=== PATIENT | female | born 1995 | race Caucasian/White ===

== ENCOUNTER 2017-11-05 20:06 | Emergency (ER) | payer MEDICAID, SELFPAY ==
[2017-11-05 20:08] VITALS: BP 140/80; PULSE 102; RESP 14; RESP 15; TEMP 36.4; O2SAT 99; BMI 28.5
--- NOTE | 2017-11-05 21:42 | ED.VISSUMM ---
- ER Visit Summary Date of Service: 11/05/17 Chief Complaint: Unable to retrieve tampon History of Present Illness: The patient is a 22 F who is on her menses put a tampon in her vagina yesterday and she is unable to retrieve it. She has no abdominal pain, no fever or chills, no rash Physical Examination: Soft and nontender abdomen. Normal external genitalia. She has no petechiae or rash. She appears well and nontoxic. Emergency Department Course and Treatment: Pelvic exam was done and the tampon was retrieved. Patient will be discharged in stable condition Impression: Tampon retrieval This note was generated with [employer] dictation software. It may contain incorrect words, spelling, and punctuation that were not noted in review of the chart prior to signing ED Disposition - Plan for ED Patient: Disposition: Home or Assisted Living Chief Complaint: Other, Pain/Inj Instructions: ED Foreign Body Vaginal Referrals: Sophia Nguyen [Primary Care Provider] - 3-5 Days
[2017-11-05 21:54] VITALS: RESP 16
--- NOTE | 2017-11-05 21:54 | ED.RN ---
REVIEWED D/C INSTRUCTIONS, FOLLOW UP CARE, AND S/S THAT WOULD WARRANT A RETURN TO THE ED WITH PT. PT VERBALIZED AN UNDERSTANDING AND DENIES FURTHER QUESTIONS FOR THIS RN. PT SKIN P/W/D, RESP EVEN AND UNLABORED, PT A&O X 3, NO DISTRESS NOTED. PT AMBULATED OUT OF ED, GAIT STEADY.
== END 2017-11-05 21:58 | disposition home or self-care (01) ==
PROVIDERS: Emergency Provider Emergency Medicine
DX: T19.2XXA Foreign body in vulva and vagina, initial encounter (principal); X58.XXXA Exposure to other specified factors, initial encounter; Y93.9 Activity, unspecified; Y92.9 Unspecified place or not applicable; F41.9 Anxiety disorder, unspecified; Z79.899 Other long term (current) drug therapy; Z72.0 Tobacco use
CPT/HCPCS: 99283

== ENCOUNTER 2018-11-18 01:41 | Emergency (ER) | payer MEDICAID, SELFPAY ==
[2018-11-18 01:41] VITALS: BP 147/97; PULSE 143; RESP 20; TEMP 37.5; O2SAT 99; BMI 24.5
--- NOTE | 2018-11-18 02:19 | ED.RN ---
PT APPROACHED THE NURSES DESK, AMBULATING INDEPENDENTLY, AND ASK WHEN CAN SHE GET THE FUCK OUT OF HERE. THIS RN STATED WE WERE CONCERNED THAT HER HEART RATE WAS ELEVATED BUT WE WERE NOT RESTRAINING HER FROM LEAVING. PT CURRENTLY ALERT AND ORIENTED X'S4 AND AMBULATING INDEPENDENTLY. TO WHICH THE PATIENT STATED GOOD. I FEEL FINE. I'M LEAVING. THANK YOU HONEY. AND LEFT THE DEPARTMENT. DR. BABB NOTIFIED OF PATIENT LEAVING. HE VERBALIZES UNDERSTANDING.
== END 2018-11-18 02:24 ==
PROVIDERS: Emergency Provider Emergency Medicine
DX: F19.10 Other psychoactive substance abuse, uncomplicated (principal)
CPT/HCPCS: 99283

== ENCOUNTER 2018-11-20 14:08 | Emergency (ER) | payer MEDICAID, SELFPAY ==
[2018-11-20 14:11] VITALS: BP 114/71; PULSE 115; RESP 17; TEMP 36.8; O2SAT 99; BMI 23.6
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
--- NOTE | 2018-11-20 16:01 | EKG12_ITS ---
Test Reason : Blood Pressure : / mmHG Vent. Rate : 099 BPM Atrial Rate : 099 BPM P-R Int : 138 ms QRS Dur : 084 ms QT Int : 356 ms P-R-T Axes : 039 068 058 degrees QTc Int : 456 ms Normal sinus rhythm Normal ECG Confirmed by KATJA MESSER, LAKE ([id number]), technical editor JASPAL IVAN ([id number]) on 11/22/2018 10:51:23 AM Referred By: Confirmed By:LAKE HIGHTOWER MD
[2018-11-20] MEDS: Naloxone 2 MG/2 ML Syringe IV (16:42)
[2018-11-20] MEDS: Ziprasidone IM 20 MG/ML VIAL 10 MG IM (16:57)
[2018-11-20 17:32] LABS: Internal QC Validated? YES +Cl - CLEAR BKGD; Pregnancy, Serum, hCG Quali. NEGATIVE Negative
[2018-11-20 17:36] LABS: Alcohol, Blood (Medical)-Serum < 3.0 mg/dL
[2018-11-20 18:17] VITALS: BP 135/79; PULSE 90; RESP 14; O2SAT 98
[2018-11-20 18:27] LABS: Absolute Lymphocyte Count 1.68 X10^3/uL (0.83-4.51); Absolute Neutrophil Count 5.6 X10^3/uL (2.0-7.7); Basophil# 0.03 X10^3/uL; Basophil% 0.4 % (0-1); Eosinophil# 0.08 X10^3/uL; Hematocrit 35.8 % (37-47); Hemoglobin 11.5 g/dL (12.0-15.0); Lymphocyte # 1.68 X10^3/ul (4.0); Lymphocyte % 21.1 % (19-41); Mean Corp Hgb Conc 32.1 g/dL (32-36); Mean Corpuscular Hgb 27.4 pg (27.0-32.0); Mean Corpuscular Volume 85.2 fL (81-99); Mean Platelet Vol. 10.4 fl (6.2-12.0); Monocyte# 0.58 X10^3/uL; Monocyte% 7.3 % (0-10); NRBC Flagged by Analyzer 0 % (0-5); Neutrophil # 5.59 X10^3/uL (2.7-7.7); Neutrophil % 69.9 % (47-70); Platelet Count 267 K/mm3 (150-450); RBC Distribution Width CV 13.6 % (11.6-14.6); RBC Distribution Width SD 42.3 fl (35.1-43.9)
[2018-11-20 18:31] VITALS: O2SAT 99
[2018-11-20 18:43] LABS: Bacteria 0 SEEN /hpf (None Seen); Mucous, Urine 0 SEEN /hpf (<or=2+); Red Blood Cells-Urine 0 SEEN /hpf (0-5); White Blood Cells 0 SEEN /hpf (0-5)
[2018-11-20 18:44] LABS: Anion Gap 6 (5-15); BUN 16 mg/dL (7-18); BUN/Creat Ratio 21.3 RATIO (10-20); Chloride 108 mmol/L (98-107); Creatinine, Serum 0.75 mg/dL (0.55-1.02); EST Glomerular Filtration Rate 99 mL/min (>60); Est Glom Filt Rate - Afr Amer 120 mL/min (>60); Estimated Creatinine Clearance 107.34 ml/min; Glucose 105 mg/dL (74-106); Potassium 3.5 mmol/L (3.5-5.1); Sodium Level 142 mmol/L (136-145)
[2018-11-20 18:47] LABS: Color, Urine Yellow (Yellow); Glucose, Dipstick Normal (Normal); Ketone-Dipstick Negative (Negative); Leukocyte Esterase-Dipstick Negative /ul (Negative); Nitrite-Dipstick Negative (Negative); Occult Blood-Urine Negative /ul (Negative); Protein-Dipstick Negative (Negative); Specific Gravity, Urine 1.015 (1.002-1.030); Urine Bilirubin Dipstick Negative (Negative); Urine Clarity Clear (Clear); Urine Urobilinogen Normal (Normal); Urine pH 6.5 (5.0 - 8.0)
[2018-11-20 19:06] LABS: Squamous Epithelial Cells - UA 0-5 SEEN /hpf (5-10)
[2018-11-20 19:20] LABS: Amphetamine Urine VISTA POSITIVE (<1000 ng/mL); Barbiturate Urine VISTA NEGATIVE (< 200 ng/mL); Benzodiazepine Urine VISTA POSITIVE (< 200 ng/mL); Cocaine Urine VISTA NEGATIVE (< 300 ng/mL); Ecstacy Urine VISTA POSITIVE (< 500 ng/mL); Methadone Urine VISTA NEGATIVE (< 300 ng/mL); PCP Urine VISTA NEGATIVE (< 25 ng/mL); THC Urine VISTA NEGATIVE (< 50 ng/mL); Vista UDS pH Range 6
[2018-11-20 20:30] VITALS: RESP 14
--- NOTE | 2018-11-20 20:48 | CM.ED ---
Social Work Collaborating with Dr. Carson. Patient tox results are back and patient is positive for Amphetamines, Meth, and Benzos. Dr. Carson wanting to continue to monitor patient as patient is not waking up to speak with Dr. Carson at this time. This nephrology social worker also attempting to speak further with patient, patient sleeping in bed and unable to be woken up from sleep. Patient would stir when mentioning name but no verbal response. Dia Baird MSW, ANATOLIY
--- NOTE | 2018-11-20 22:20 | CM.ED ---
Social Work Attempted to speak with patient again in room. Patient woke up and spoke with this social insurance adviser. Patient now admitting to dabble in Meth. Patient denies substance abuse treatment or support. Patient stating plan to get set up with [facility] as program that patient has gone through in the past. This social insurance adviser again offering to assist with facilitation or information, patient declining support stating It will be fine. update on above information. Dia Baird MSW, ANATOLIY
--- NOTE | 2018-11-20 23:25 | ED.VISSUMM ---
- ER Visit Summary Date of Service: 11/20/18 Chief Complaint: Anxiety History of Present Illness: The patient is a 23 F who presents with anxiety that became worse today. Patient is a poor historian. Patient reported to the triage nurse that she was out of her Xanax and was having increasing anxiety. Patient denied any suicidal homicidal ideations. Family reported that the patient has a history of substance abuse problems. Family is requesting the patient be placed in a substance abuse rehab facility. Patient states that she has a rehab facility that she wishes to go to. Patient brought her medications in with her. Most of the medications are correct in the prescription bottles. However, patient has 1 dose of Vistaril in her venlafaxine bottle. Patient also has a mixture of Zanaflex and gabapentin in a bottle with a label of Xanax. All of her other pills are in the correct bottles. Physical Examination: Patient is sleeping on exam. Patient awakens to tunnel rub. Patient will not answer any questions. Vital signs are stable except for mild tachycardia of 115. Patient is afebrile. Patient is in no acute distress. Oral mucosa is pink and moist. Neck is supple. Trachea is midline. There is no JVD noted. Heart was regular and tachycardic. Lungs are clear and equal bilaterally. Abdomen is soft and nontender. Cranial nerves II through XII are intact. There are no apparent focal motor or sensory deficits noted. Test Results: EKG showed normal sinus rhythm with a rate of 99. There are no acute ST or T wave changes. CBC, basic metabolic profile, and urinalysis were obtained and were all within normal limits. Serum hCG was negative. Serum alcohol level was negative. Urine tox screen was positive for amphetamines, MDMA, and benzodiazepines. Emergency Department Course and Treatment: Patient became agitated and combative with nursing staff while they were attempting to draw blood and start an IV. Patient then fell back to sleep when she was left alone. Patient was slightly more alert on reevaluation. Patient was able to answer questions on reevaluation. Patient stated she wanted to go to her rehab facility of her choice. Patient will be discharged to go to that facility. Patient understood and was agreeable with the plan. All questions were answered. Disposition: Discharged Impression: 1. Substance abuse This note was generated with [employer] software. It may contain incorrect words, spelling, and punctuation that were not noted in review of the chart prior to signing ED Disposition - Plan for ED Patient: Disposition: Home or Assisted Living Diagnosis: Substance abuse Instructions: Drug Abuse Referrals: Sophia Nguyen [Primary Care Provider] - 3-5 Days
[2018-11-20 23:30] VITALS: RESP 16
--- NOTE | 2018-11-21 00:20 | ED.RN ---
PATIENT DISCHARGED. SPOKE TO FAMILY FOR RIDE FOR PATIENT. FAMILY REFUSES TO COME GET HER AND REFUSES TO LET HER HOME.
[2018-11-21 00:33] VITALS: BP 118/70; PULSE 89; RESP 16; O2SAT 100
[2018-11-21 01:24] VITALS: RESP 16
== END 2018-11-21 03:06 | disposition home or self-care (01) ==
PROVIDERS: Emergency Provider Emergency Medicine
DX: F19.10 Other psychoactive substance abuse, uncomplicated (principal); F41.9 Anxiety disorder, unspecified; Z72.0 Tobacco use
CPT/HCPCS: 80048; 80307; 80320; 81001; 84703; 85025; 93005; 96372; 96374; 99285; P9612; A4216; G0480; J3486

== ENCOUNTER 2019-10-14 16:25 | Outpatient (CLI) | payer MEDICAID, SELFPAY ==
[2019-10-14 16:38] VITALS: TEMP 36.8; O2SAT 98
[2019-10-14 16:42] VITALS: BP 121/65; PULSE 85
[2019-10-14 16:44] VITALS: BMI 27.9
--- NOTE | 2019-10-14 18:15 | OB.TRI.HP_ITS ---
- Problem List (1) 32 weeks gestation of Status: Acute (2) Fall Status: Acute History of Present Illness Date of Service: 10/14/19 Was patient seen by the physician?: Yes Reason For Visit: CRAMPING Date of Service: 10/14/19 Final [place]ER[place]: 12/09/19 Gestational age: 32 Weeks and 0 Days History of Present Illness: Patient is a at 32 weeks gestation that presents to triage for mild cramping. Patient fell last evening while at [employer]. She stated she stopped fall by grabbing a hold of shelves but bumped side of her stomach. Denies any loss of fluid, vaginal bleeding and stated positive movement. She started feeling crampy this afternoon, became concerned and came in for monitoring. Allergies No Known Allergies Allergy (Verified 10/14/19 16:38) Review of Systems Constitutional: Denies: Anorexia Eyes: Denies: Blurred vision HEENT: Denies: Eye Pain, Head Aches Cardiovascular: Denies: Chest Pain, Light Headedness Respiratory: Denies: Cough, Shortness of Breath Gastrointestinal: Denies: Abdominal Pain Neurological: Denies: Balance problems Physical Exam Vitals: Vital Signs Temp Pulse BP Pulse Ox 98.3 F 85 121/65 H 98 10/14/19 16:38 10/14/19 16:42 10/14/19 16:42 10/14/19 16:38 General: Alert, Oriented x3, No apparent distress HEENT: Negative for: Atraumatic Cardiovascular: Regular rate, Regular Rhythm Lungs: Clear to auscultation, Normal air movement Abdomen: Soft, Non Tender, Gravid Neurological: Cranial nerves II-XII grossly intact NST - FHR Rate Baby A Baseline: 130 Variability:: Moderate Accelerations:: 15 x 15 Decelerations:: None NST Reactive:: Appropriate for gestational age FHR Category:: Category I Uterine Activity:: Irritability noted when bladder is full. Contractions not palpable. Impression/Plan A/P at 32 weeks gestation s/p fall yesterday evening NST - reactive, Category 1 tracing Patient given instructions to call and report any decreased movement, contractions that become regular or painful, pain in abdomen or vaginal ble eding. Patient to keep current office visit this week Discharge home. Patient agrees with plan of care
== END 2019-10-14 18:10 | disposition home or self-care (01) ==
LOC: WPOUT 16:33 → OBT 16:34
PROVIDERS: Visit Provider Advanced Practice Midwife
DX: O26.893 Other specified pregnancy related conditions, third trimester (principal); R25.2 Cramp and spasm; Z3A.32 32 weeks gestation of pregnancy; W18.30XA Fall on same level, unspecified, initial encounter; Y93.9 Activity, unspecified; Y92.512 Supermarket, store or market as the place of occurrence of the external cause; Y99.9 Unspecified external cause status
CPT/HCPCS: 59025; 59050; 99218; G0378

== ENCOUNTER 2019-12-06 23:18 | Outpatient (CLI) | payer MEDICAID, SELFPAY ==
[2019-12-06 23:46] VITALS: TEMP 36.6
[2019-12-06 23:50] VITALS: BP 115/78; PULSE 67
[2019-12-06 23:57] VITALS: BMI 27.3
[2019-12-07 01:35] VITALS: BP 113/72; PULSE 68
--- NOTE | 2019-12-07 07:28 | OB.TRI.NOTE ---
- Problem List (1) 39 weeks gestation of Status: Acute (2) Irregular contractions Status: Acute History of Present Illness Date of Service: 12/06/19 Was patient seen by the physician?: No Reason For Visit: R/O Final FEDERICA: 12/09/19 Gestational age: 39 Weeks and 5 Days History of Present Illness: Patient is a that presents to triage with contractions. Denies any loss of fluid or vaginal bleeding. Positive movement. Allergies No Known Allergies Allergy (Verified 10/14/19 16:38) Review of Systems Constitutional: Denies: Chills, Fever HEENT: Denies: Head Aches Cardiovascular: Denies: Chest Pain Respiratory: Denies: Cough, Shortness of Breath Genitourinary: Denies: Dysuria Psychiatric: Reports: Anxiety Physical Exam Vitals: Vital Signs Temp Pulse BP 97.9 F 68 113/72 12/06/19 23:46 12/07/19 01:35 12/07/19 01:35 General: Alert Cardiovascular: Regular rate Lungs: Normal air movement Abdomen: Gravid Neurological: Cranial nerves II-XII grossly intact Cervix Dilation (cm): 2.5 Station: -2 Effacement (%): 70 NST - FHR Rate Baby A Baseline: 120 Variability:: Moderate Accelerations:: 15 x 15 Decelerations:: None NST Reactive:: Yes FHR Category:: Category I Uterine Activity:: Contractions 2-4 minutes via TOCO Impression/Plan at 39.5 weeks for rule out labor Category 1 tracing CE- unchanged at 2.5/70/-2 Tylenol 1000 mg x 1 now for pain Discharge home with follow up in office
== END 2019-12-07 02:28 | disposition home or self-care (01) ==
LOC: WPOUT 23:24 → WP 23:25
PROVIDERS: Visit Provider Advanced Practice Midwife
DX: O62.9 Abnormality of forces of labor, unspecified (principal); Z3A.39 39 weeks gestation of pregnancy
CPT/HCPCS: 59025; 59050; 99218; G0378

== ENCOUNTER 2019-12-07 15:20 | Inpatient (IN) | payer MEDICAID, SELFPAY ==
[2019-12-06 23:57] VITALS: BMI 27.3
[2019-12-07] VITALS (28 sets, daily range): BP systolic 89–129; BP diastolic 50–77; PULSE 80–125; TEMP 37–37.8; O2SAT 92–100; BMI 26.8
[2019-12-07 14:59] LABS: Color, Urine Yellow (Yellow); Glucose, Dipstick Normal (Normal); Leukocyte Esterase-Dipstick 500 /ul (Negative); Nitrite-Dipstick Negative (Negative); Occult Blood-Urine 50 /ul (Negative); Protein-Dipstick Negative (Negative); Specific Gravity, Urine 1.015 (1.002-1.030); Urine Bilirubin Dipstick Negative (Negative); Urine Clarity Clear (Clear); Urine Urobilinogen Normal (Normal)
[2019-12-07 15:08] LABS: Ketone-Dipstick 150 mg/dl (Negative)
[2019-12-07 15:13] LABS: Amphetamine Urine VISTA NEGATIVE (<1000 ng/mL); Barbiturate Urine VISTA NEGATIVE (< 200 ng/mL); Benzodiazepine Urine VISTA NEGATIVE (< 200 ng/mL); Cocaine Urine VISTA NEGATIVE (< 300 ng/mL); Ecstacy Urine VISTA NEGATIVE (< 500 ng/mL); Methadone Urine VISTA NEGATIVE (< 300 ng/mL); PCP Urine VISTA NEGATIVE (< 25 ng/mL); THC Urine VISTA POSITIVE (< 50 ng/mL); Vista UDS pH Range 6
--- NOTE | 2019-12-07 15:34 | HP.PCM_ITS ---
- Problem List (1) Term Status: Acute (2) Marijuana use Status: Acute (3) Hepatitis C Status: Acute (4) History of depression Status: Acute (5) History of anxiety Status: Acute (6) History of depression Status: Acute (7) Tobacco use complicating Status: Acute (8) History of drug abuse Status: Acute History Date of Admission: 01/01/16 Final FEDERICA: 12/09/19 Gestational age: 39 Weeks and 5 Days History of this : This is a 24 year-old, G [3], P [1011], at 39weeks 5days gestational age. In and out of triage for prodromal labor. Progressed from 2cm in office yesterday to 4cm at this time. Tearful and crying in pain. IOL for maternal discomfort and prodromal labor. Allergies No Known Allergies Allergy (Verified 10/14/19 16:38) Home Medications: Home Medications Famotidine 20 mg PO BID 11/20/18 Vitamin Tablet 1 tab PO DAILY 10/14/19 Smoking Status: Current every day smoker Alcohol: None Substance Use Type: Marijuana Number of Fetus(es): 1 NST - FHR Rate Baby A Baseline: 150 Variability:: Moderate Accelerations:: 15 x 15 Decelerations:: None FHR Category:: Category I Uterine Activity:: every 5-7 minutes, moderate History Past Pregnancies: Past Pregnancies Delivery Date Name GA/ Weeks Outcome Route Wt Infant Sex Labor Length Anesthesia Delivery Location Provider FOB Labs: GBS negative GC/CT negative RPR negative Rubella equivocal HIV negative A positive HCV RNA 7,279,574 IU/ml 11/23/19 HBsAG initially reactive, recheck negative Expected Infant Delivery Method: Spontaneous Vaginal Review of Systems Constitutional: Denies: Chills, Fever, Weight Change HEENT: Denies: Head Aches, Sinus Congestion, Sinus Drainage Cardiovascular: Denies: Chest Pain, Palpitations Respiratory: Denies: Cough, Shortness of breath at rest, Sputum production Gastrointestinal: Denies: Abdominal Pain, Nausea, Vomiting Genitourinary: Denies: Dysuria Musculoskeletal: Denies: Joint Pain, Joint Tenderness Skin: Denies: Rash, Wounds Neurological: Denies: Numbness, Tingling, Focal weakness Psychiatric: Denies: Anxiety, Depression, Homicidal Ideations, Suicidal Ideations Hematologic/ Lymphatic: Denies: Easy Bruising, Easy Bleeding Physical Exam Vitals: Vital Signs Temp Pulse BP Pulse Ox 98.6 F 90 119/67 99 12/07/19 12:08 12/07/19 15:07 12/07/19 15:07 12/07/19 12:08 General: Alert, Oriented x3, Cooperative HEENT: Atraumatic, Normocephalic Cardiovascular: Regular rate, Regular Rhythm, No murmurs Lungs: Clear to auscultation, Normal air movement, No rhonchi, No wheeze Abdomen: Bowel Sounds Present, Gravid Extremities:: No edema Neurological: Deep Tendon Reflexes 2+/4 and Symmetrical REAL ESTATE DEVELOPMENT MANAGER: Normal external genitalia Estimated gestational size: Appropriate for gestational size Presentation: Cephalic Cervix Dilation (cm): 4 - cephalic Station: -1 Effacement (%): 80 Assessment/Plan All Active Problems 32 weeks gestation of (Acute) Fall (Acute) 39 weeks gestation of (Acute) Irregular contractions (Acute) Term (Acute) Marijuana use (Acute) Hepatitis C (Acute) History of depression (Acute) History of anxiety (Acute) History of depression (Acute) Tobacco use complicating (Acute) History of drug abuse (Acute) Respiratory failure requiring intubation (Acute) Seizure (Acute) Substance abuse (Acute) Anxiety (Acute) This is a 24 year-old, G [3], P [1011], at 39 weeks 5 days gestational age. A:Early Labor Category 1 FHT P: 1) Admit to labor and delivery 2) Routine labs, IV 3) Planning epidural 4) Continuous EFM 5) GBS negative 6) Denies COVID symptoms 7) notified of admission and plan
[2019-12-07 16:21] LABS: Absolute Lymphocyte Count 1.16 X10^3/uL (0.83-4.51); Absolute Neutrophil Count 21.3 X10^3/uL (2.0-7.7); Basophil# 0.03 X10^3/uL; Basophil% 0.1 % (0-1); Eosinophil# 0.03 X10^3/uL; Eosinophils% 0.1 % (0-5); Hematocrit 36.7 % (37-47); Hemoglobin 11.9 g/dL (12.0-15.0); Lymphocyte # 1.16 X10^3/ul (4.0); Mean Corp Hgb Conc 32.4 g/dL (32-36); Mean Corpuscular Hgb 30.1 pg (27.0-32.0); Mean Corpuscular Volume 92.7 fL (81-99); Mean Platelet Vol. 11.3 fl (6.2-12.0); Monocyte# 0.48 X10^3/uL; Monocyte% 2.1 % (0-10); NRBC Flagged by Analyzer 0 % (0-5); Neutrophil % 91.8 % (47-70); POSITIVE DIFFERENTIAL YES; Platelet Count 255 K/mm3 (150-450); RBC Distribution Width CV 13.1 % (11.6-14.6); RBC Distribution Width SD 44.6 fl (35.1-43.9); Red Blood Count 3.96 M/mm3 (4.2-5.4); White Blood Count 23.2 K/mm3 (4.4-11.0)
[2019-12-07 16:25] LABS: Differential Indicated SCAN CRITERIA MET
[2019-12-07] MEDS: Lactated Ringers 1,000 ML 50 ML IV (16:31)
[2019-12-07] MEDS: Lactated Ringers 500 ML 999 ML IV (16:32)
[2019-12-07] MEDS: proCHLORPERazine 10 MG/2 ML Vial IV (17:18)
[2019-12-07 17:22] LABS: Platelet Estimate ADEQUATE (ADEQ); Red Cell Morphology NORM C+C NORMAL (NORM C&C)
[2019-12-07] MEDS: Oxytocin 30 units/NS 500 ml 30 UNITS/500 ML IV.SOLN 334 UNITS IV (20:05)
--- NOTE | 2019-12-07 20:20 | PCM.OPRPT ---
Problem List (1) Term Status: Acute (2) Marijuana use Status: Acute (3) Hepatitis C Status: Acute (4) History of depression Status: Acute (5) History of anxiety Status: Acute (6) History of depression Status: Acute (7) Tobacco use complicating Status: Acute (8) History of drug abuse Status: Acute Vaginal Delivery Maternal Presentation: - - Early labor, inductinon for prodromal labor. Method of Induction: Amniotomy Amniotic Membrane Rupture Type: Artificial Amniotic Fluid Description: Lightly stained meconium Final FEDER[place]: 12/09/19 Gestational age: 39 Weeks and 5 Days Date of Procedure: 12/07/19 Pre-Operative Diagnosis: Early Labor Post-Operative Diagnosis: Surgery/ Procedure Performed: Spontaneous Vaginal Delivery Type of Anesthesia: Epidural Description of Procedure: Progressed to anterior lip, comfortable with epidural. Variable decelerations. Good pushing effort. of viable female infant over intact perineum at 2003. APGARS 8,9. delivered with boy immediately following. Placed on maternal abdomen, strong cry. Mouth and nares suctioned for secretions. Pitocin started for active 3rd stage management. Cord clamped and cut after pulsations ceased by FOB. Placenta delivered via antonette, intact, 3 vessel cord. Perineum inspected and intact. Vaginal sweep completed and sponge and instrument count correct by me. Planning to attempt , nipples intact. Mom and baby stable. Family bonding well. notified of delivery. Presentation: Vertex Placental Delivery Description: Spontaneous Placenta Disposition: [facility] Cord Vessel Description: 3 Vessels Cord Entanglement: None Estimated Blood Loss: 300 ml Infant A gender: Female Episiotomy Description: None Laceration: None Medications given after delivery: IV Pitocin Complications: None
[2019-12-07] MEDS: Famotidine 20 MG Tablet PO (22:31)
[2019-12-07] MEDS: 0.9% Saline Lock 10 ML Syringe IV (22:31)
[2019-12-08] MEDS: Ibuprofen 600 MG Tablet PO ×3 (00:15→19:04)
[2019-12-08 00:26] VITALS: BP 105/63; PULSE 80; RESP 18; TEMP 36.9
[2019-12-08 04:00] VITALS: BP 121/66; PULSE 75; RESP 18; TEMP 36.3
[2019-12-08 04:15] LABS: Hematocrit 33.3 % (37-47); Hemoglobin 10.7 g/dL (12.0-15.0); Mean Corp Hgb Conc 32.1 g/dL (32-36); Mean Corpuscular Hgb 29.8 pg (27.0-32.0); Mean Corpuscular Volume 92.8 fL (81-99); Mean Platelet Vol. 11.3 fl (6.2-12.0); Platelet Count 272 K/mm3 (150-450); RBC Distribution Width CV 13.3 % (11.6-14.6); RBC Distribution Width SD 45.2 fl (35.1-43.9); Red Blood Count 3.59 M/mm3 (4.2-5.4); White Blood Count 23.8 K/mm3 (4.4-11.0)
[2019-12-08 08:55] VITALS: BP 112/74; PULSE 75; RESP 14; TEMP 36.3
[2019-12-08] MEDS: Famotidine 20 MG Tablet PO ×2 (09:11→22:52)
[2019-12-08 11:46] VITALS: BP 116/70; PULSE 75; RESP 15; TEMP 36.4
[2019-12-08] MEDS: Prenatal Vits Tablet 1 TABLET PO (11:51)
--- NOTE | 2019-12-08 13:17 | PCM.PN.OB ---
Patient Problems: Active and Suspected Problems Term (Acute) Marijuana use (Acute) Hepatitis C (Acute) History of depression (Acute) History of anxiety (Acute) History of depression (Acute) Tobacco use complicating (Acute) History of drug abuse (Acute) Subjective: Doing well per patient and nursing staff. Ambulating and taking PO without difficulty. Voiding and passing flatus. Pain controlled. Bottle feeding. Lochia normal. Planning D/C home tomorrow. - Physical Exam Vitals/I&O's: Vital Signs Temp Pulse Resp BP Pulse Ox 97.6 F L 75 15 116/70 96 12/08/19 11:46 12/08/19 11:46 12/08/19 11:46 12/08/19 11:46 12/07/19 20:27 Oxygen Delivery Method Room Air Weight: 161 lb 2 oz Body Mass Index (BMI) 26.8 Finger Stick Blood Glucose 145 Intake and Output for Last 24 Hours 12/06/19 12/07/19 12/08/19 23:59 23:59 23:59 Intake Total 1497.50 / 1497.50 Output Total 550 / 550 350 / 350 Balance 947.50 / 947.50 -350 / -350 General: Alert, Oriented x3, Cooperative HEENT: Atraumatic, Normocephalic Neck: Trachea Midline Lungs: Clear to auscultation, Normal air movement, No rhonchi, No wheeze Cardiovascular: Regular rate, Regular Rhythm, No murmurs Abdomen: Bowel Sounds Present, Soft - fundus firm 2 below U Extremities: No edema Psych/Mental Status: Normal Affect, Appropriate Laboratory Results 12/07/19 14:30: Urine Opiates Screen NEGATIVE, Urine Methadone Screen NEGATIVE, Ur Barbiturates Screen NEGATIVE, Ur Phencyclidine Scrn NEGATIVE, Ur Amphetamines Screen NEGATIVE, U Methamphetamin-MDMA NEGATIVE, U Benzodiazepines Scrn NEGATIVE, Urine Cocaine Screen NEGATIVE, U Cannabinoids Screen POSITIVE H, Ur Drug Screen Comment 12/07/19 14:30: Urine Color Yellow, Urine Clarity Clear, Urine pH 6.0, Ur Specific [place] 1.015, Urine Protein Negative, Urine Glucose (UA) Normal, Urine Ketones 150 H, Urine Occult Blood 50 H, Urine Nitrite Negative, Urine Bilirubin Negative, Urine Urobilinogen Normal, Ur Leukocyte Esterase 500 H 12/07/19 16:05: WBC 23.2 H, RBC 3.96 L, Hgb 11.9 L, Hct 36.7 L, MCV 92.7, MCH 30.1, MCHC 32.4, RDW Std Deviation 44.6 H, RDW Coeff of Silvana 13.1, Plt Count 255, MPV 11.3, Immature Gran % (Auto) 0.900, Neut % (Auto) 91.8 H, Lymph % (Auto) 5.0 L, [place] % (Auto) 2.1, Eos % (Auto) 0.1, Baso % (Auto) 0.1, Absolute Neuts (auto) 21.3 H, Absolute Lymphs (auto) 1.16, Nucleated RBC % 0, Differential Comment , Platelet Estimate ADEQUATE, RBC Morphology NORM C+C 12/07/19 16:05: Blood Type A POSITIVE, Antibody Screen NEGATIVE 12/08/19 04:00: WBC 23.8 H, RBC 3.59 L, Hgb 10.7 L, Hct 33.3 L, MCV 92.8, MCH 29.8, MCHC 32.1, RDW Std Deviation 45.2 H, RDW Coeff of Silvana 13.3, Plt Count 272, MPV 11.3 Current Medications Acetaminophen (Tylenol) 1,000 mg PO Q8H PRN PRN PRN Reason: Pain Score 1-3 Al Hydroxide/Mg Hydroxide (Mylanta Ii) 15 - 30 ml PO Q4H PRN PRN PRN Reason: INDIGESTION Bisacodyl (Dulcolax) 10 mg RECTAL UD PRN PRN Reason: If no BM Citric Acid/Sodium Citrate (Bicitra) 30 ml PO X1 PRN PRN Reason: Section Dibucaine (Dibucaine) 1 applic TOPICAL TID PRN PRN; Protocol PRN Reason: Discomfort Famotidine (Pepcid) 20 mg PO BID ZAIRA Last Admin: 12/08/19 09:11 Dose: 20 mg Documented by: Hydrocortisone (Hytone) 1 applic TOPICAL TID PRN PRN; Protocol PRN Reason: Discomfort Lactated Ringer's () 500 mls @ 999 mls/hr IV .Q31M PRN PRN Reason: Epidural Last Infusion: 12/07/19 17:03 Dose: Infused Documented by: Lactated Ringer's () 500 mls @ 999 mls/hr IV .Q31M PRN PRN Reason: Corrective Measures Lactated Ringer's () 1,000 mls @ 50 mls/hr IV .Q20H ZAIRA Last Infusion: 12/07/19 20:04 Dose: Infused Documented by: Ibuprofen (Motrin) 600 mg PO Q6H PRN PRN PRN Reason: Pain Score 1-3 Last Admin: 12/08/19 09:11 Dose: 600 mg Documented by: Methylergonovine Maleate (Methergine) 0.2 mg IM X1 PRN PRN Reason: Excess bleeding/uterine atony Ondansetron HCl (Zofran) 4 mg IV Q4H PRN PRN PRN Reason: NAUSEA Ondansetron HCl (Zofran) 4 mg IV Q4H PRN PRN PRN Reason: Nausea Multivit/Folic Acid/Iron (Prenatabs Fa) 1 tablet PO DAILY@1200 ZAIRA Last Admin: 12/08/19 11:51 Dose: 1 tablet Documented by: Prochlorperazine Edisylate (Compazine Iv) 10 mg IV Q6H PRN PRN PRN Reason: NAUSEA Last Admin: 12/07/19 17:18 Dose: 10 mg Documented by: Senna/Docusate Sodium (Senokot-S, Mer-Colace) 1 - 2 tablet PO DAILY PRN PRN PRN Reason: Constipation Simethicone (Mylicon) 80 mg PO PCHS PRN PRN Reason: Indigestion/Stomach pain Sodium Chloride () 5 - 15 ml IV UD PRN PRN Reason: SALINE FLUSH Medical Necessity - Tobacco Use Smoking Status: Former smoker Assessment/Plan All Active Problems 32 weeks gestation of (Acute) Fall (Acute) 39 weeks gestation of (Acute) Irregular contractions (Acute) Term (Acute) Marijuana use (Acute) Hepatitis C (Acute) History of depression (Acute) History of anxiety (Acute) History of depression (Acute) Tobacco use complicating (Acute) History of drug abuse (Acute) Respiratory failure requiring intubation (Acute) Seizure (Acute) Substance abuse (Acute) Anxiety (Acute) A:PPD#1 P: 1) Routine care 2) sheet metal duct worker supervisor consult 3) Pain management 4) Planning D/C home tomorrow
[2019-12-08 17:04] VITALS: BP 116/76; PULSE 86; RESP 15; TEMP 36.7
--- NOTE | 2019-12-08 17:30 | CASEMGMT ---
Social Work Assessment Labor and Delivery Unit Date of Referral: 12/08/2019 Time of Referral: 01:49 Referred By: Jacquie Kent CNM Date of Intervention: 12/08/2019 Time of Intervention: 17:30 Reason for Referral: Mother of baby (MOB) diagnosed with Anxiety and Depression. MOB with history of IV drug use, Heroin. MOB sober since 2018. MOB with positive tox screen for THC on admission. History obtained from: MOB, Father of baby (FOB), Chart, nursing staff. Household composition: MOB, FOB (Brady Vazquez), Wade Vazquez (age 7), Pauline (MOB?s grandmother) and now this infant, Meagan Vazquez. Patient's parent/guardian status: This is second child for both MOB and FOB. MOB and FOB have been together for 8 years. was not planned but accepted. Medical History: MOB with vaginal delivery at 39 weeks. MOB with history of Depression and Anxiety. MOB reports history of Depression with first . MOB with history of substance abuse (Heroin and THC). MOB with prior to delivery of this . This born on [birth year]2019 with a weight of 3050g and apgars of 8 and 9 at 1min and 5min. MOB with appropriate care. Infant to have Dr. Umaña as independent film maker. Educational Status: MOB with high school diploma. MOB/FOB deny any issues with comprehension or understanding. Financial Status: MOB works full-time at the [employer] in the [employer] department. MOB plans to have 6 weeks off work for maternity leave. FOB works at [employer] full-time. No financial concerns expressed by MOB/FOB. Supplies: MOB reports to have all needed supplies for including a crib and car seat. MOB plans to bottle feed and reports to have formula and bottles. Childcare/Caregiver(s): MOB will be primary caregiver for infant until returning to work in which family assist with childcare. Wade is currently with MOB?s mother. Transportation: Deny any concerns. Programs/Agencies Involved: MOB reports to be active with WIC and plans to call the insurance and WIC on Tuesday to update on infant being born. Children Services/Legal Issues: History of Children Services through [facility] with Wade. An investigation was completed. Garland was not removed from the home. The investigation was completed due to MOB?s substance abuse. Due to FOB and MOB?s grandmother involvement Garland was not removed from the home per MOB/FOBs report. No active case. Mental Health History: MOB with history of Depression, Anxiety, and Depression. MOB reports to be active with the [facility] and to follow with Dr. Frederick. MOB initiating plan to call Dr. Frederick Tuesday to set up appointment. MOB denies any active medications due to ?the meds on working.? MOB reports to have a medical marijuana card and ?weed helps.? MOB reports plan to set up counseling services as MOB is not active with counseling. MOB discussing plan for counseling with no prompts from this psychotherapist social worker. MOB reports history of suicidal thoughts. MOB reports last suicidal thought was over a year ago. MOB denies active suicidal thoughts/plans/intents. Substance Use History: MOB admits to history of IV drug abuse, Heroin. MOB reports to have been sober for 3.5 years and to have relapsed in 2018. MOB reports to have ?gotten help.? MOB states to have gone through rehab in 2018 and reports no Heroin or substance abuse /use since other than THC. MOB admits to history of prescription drug abuse and meth abuse with no active use. MOB reports active THC usage with last use being a few days prior to coming into the emergency room. MOB denies need for assistance with THC usage as MOB states to have a medical marijuana card and that the THC helps MOB manage mental health. MOB does admit to smoking tobacco daily. FOB also states to have a marijuana card and to smoke tobacco. This psychotherapist social worker inquiring as to safety plan for children in the home when MOB and FOB are using THC or smoking tobacco. MOB and FOB reporting that there is no smoking/using substances in the home and that a non-using adult is always with the children. MOB and FOB aware of risk of SIDS. MOB aware of risk of THC exposure thought and plans to bottle feed. MOB reports that infant is doing well with bottle feeding. Maternal and Infant Drug Screens: MOB with positive tox screen for THC on admission (12/07/2019). with positive urine tox screen for THC on 12/08/2019. Meconium is currently pending for infant. PHQ9: Did not trigger. Family/Social Stressors: Unplanned and transitioning to having another child in the home. FOB reporting that the ?goal is that we will have our own place.? FOB states to be working on finding own private home for MOBWade FOB and now this infant so that the family no longer will need to live with MOB?s grandmother (Pauline). Support Systems: MOB and FOB report positive support from family. Depression and Anxiety/Shaken Baby/Safe Sleeping: This psychotherapist social worker able to broach topic of Depression and Anxiety with MOB. MOB educated on signs and symptoms of Depression. MOB reports to have needed support in the community and voices plan so establish with a counselor in the community through the Counseling Center. MOB/FOB responding appropriately to prompts for Shaken Baby and Safe Sleeping. MOB provided with written information on depression, shaken baby, safe sleeping, and [facility] Community resources. This psychotherapist social worker broached topic of Help Me Grow. MOB is currently not interested in Help Me Grow referral but open to information on how to make a self-referral. ASSESSMENT: Met with MOB, FOB and infant in room. FOB holding during interaction. MOB and FOB both report to have a connection with infant. MOB and FOB smiling often towards during interaction. MOB and FOB changed infant diaper during assessment and were able to manage appropriately and changed diaper appropriately. MOB and FOB with majority of questions about being positive for THC. This psychotherapist social worker informing MOB and FOB that a children services referral will need to be made due to positive tox screen in MOB and infant. MOB and FOB voicing understanding to reason for referral. This psychotherapist social worker able to answer questions. MOB and FOB deny any community concerns/needs. Safe Plan of Care for infant related to substance use: THC not to be used around children. Children to have a non-using adult monitoring children. There is no smoking of tobacco or use of substances within the home. MOB plans to bottle feed. PLAN: Infant to discharge to home with MOB and FOB. Will call children services on weekday as no immediate concerns of safety. Will continue to follow and make referrals as needed. Dia Baird MSW, ISIDRA
[2019-12-08 20:15] VITALS: BP 116/80; PULSE 70; RESP 18; TEMP 36.4
[2019-12-08] MEDS: Acetaminophen 500 MG Tablet 1000 MG PO (20:21)
[2019-12-09] MEDS: Ibuprofen 600 MG Tablet PO ×2 (03:07→09:16)
[2019-12-09 03:09] VITALS: BP 116/78; PULSE 64; RESP 18; TEMP 36.4
[2019-12-09] MEDS: Acetaminophen 500 MG Tablet 1000 MG PO (04:30)
[2019-12-09 08:35] VITALS: BP 120/77; PULSE 62; RESP 14; TEMP 36.2
--- NOTE | 2019-12-09 10:39 | PCM.PN.OB ---
Patient Problems: Active and Suspected Problems Term (Acute) Marijuana use (Acute) Hepatitis C (Acute) History of depression (Acute) History of anxiety (Acute) History of depression (Acute) Tobacco use complicating (Acute) History of drug abuse (Acute) Subjective: Doing well per patient and nursing staff. Ambulating and taking PO without difficulty. Voiding and passing flatus. Pain controlled. Bottle feeding. Lochia normal. Planning D/C home today. - Physical Exam Vitals/I&O's: Vital Signs Temp Pulse Resp BP Pulse Ox 97.1 F L 62 14 120/77 96 12/09/19 08:35 12/09/19 08:35 12/09/19 08:35 12/09/19 08:35 12/07/19 20:27 Oxygen Delivery Method Room Air Weight: 161 lb 2 oz Body Mass Index (BMI) 26.8 Finger Stick Blood Glucose 145 Intake and Output for Last 24 Hours 12/07/19 12/08/19 12/09/19 23:59 23:59 23:59 Intake Total 1497.50 / 1497.50 Output Total 550 / 550 350 / 350 Balance 947.50 / 947.50 -350 / -350 General: Alert, Oriented x3, Cooperative HEENT: Atraumatic, Normocephalic Neck: Trachea Midline Lungs: Clear to auscultation, Normal air movement, No rhonchi, No wheeze Cardiovascular: Regular rate, Regular Rhythm, No murmurs Abdomen: Bowel Sounds Present, Soft - fundus firm 2 below U Extremities: No edema - Shannan's negative bilaterally Neurological: Deep Tendon Reflexes 2+/4 and Symmetrical Psych/Mental Status: Normal Affect, Appropriate Current Medications Acetaminophen (Tylenol) 1,000 mg PO Q8H PRN PRN PRN Reason: Pain Score 1-3 Last Admin: 12/09/19 04:30 Dose: 1,000 mg Documented by: Al Hydroxide/Mg Hydroxide (Mylanta Ii) 15 - 30 ml PO Q4H PRN PRN PRN Reason: INDIGESTION Bisacodyl (Dulcolax) 10 mg RECTAL UD PRN PRN Reason: If no BM Citric Acid/Sodium Citrate (Bicitra) 30 ml PO X1 PRN PRN Reason: Section Dibucaine (Dibucaine) 1 applic TOPICAL TID PRN PRN; Protocol PRN Reason: Discomfort Famotidine (Pepcid) 20 mg PO BID ZAIRA Last Admin: 12/08/19 22:52 Dose: 20 mg Documented by: Hydrocortisone (Hytone) 1 applic TOPICAL TID PRN PRN; Protocol PRN Reason: Discomfort Lactated Ringer's () 500 mls @ 999 mls/hr IV .Q31M PRN PRN Reason: Epidural Last Infusion: 12/07/19 17:03 Dose: Infused Documented by: Lactated Ringer's () 500 mls @ 999 mls/hr IV .Q31M PRN PRN Reason: Corrective Measures Ibuprofen (Motrin) 600 mg PO Q6H PRN PRN PRN Reason: Pain Score 1-3 Last Admin: 12/09/19 09:16 Dose: 600 mg Documented by: Methylergonovine Maleate (Methergine) 0.2 mg IM X1 PRN PRN Reason: Excess bleeding/uterine atony Ondansetron HCl (Zofran) 4 mg IV Q4H PRN PRN PRN Reason: NAUSEA Ondansetron HCl (Zofran) 4 mg IV Q4H PRN PRN PRN Reason: Nausea Multivit/Folic Acid/Iron (Prenatabs Fa) 1 tablet PO DAILY@1200 ZAIRA Last Admin: 12/08/19 11:51 Dose: 1 tablet Documented by: Prochlorperazine Edisylate (Compazine Iv) 10 mg IV Q6H PRN PRN PRN Reason: NAUSEA Last Admin: 12/07/19 17:18 Dose: 10 mg Documented by: Senna/Docusate Sodium (Senokot-S, Mer-Colace) 1 - 2 tablet PO DAILY PRN PRN PRN Reason: Constipation Simethicone (Mylicon) 80 mg PO PCHS PRN PRN Reason: Indigestion/Stomach pain Sodium Chloride () 5 - 15 ml IV UD PRN PRN Reason: SALINE FLUSH Medical Necessity - Tobacco Use Smoking Status: Former smoker Assessment/Plan All Active Problems 32 weeks gestation of (Acute) Fall (Acute) 39 weeks gestation of (Acute) Irregular contractions (Acute) Term (Acute) Marijuana use (Acute) Hepatitis C (Acute) History of depression (Acute) History of anxiety (Acute) History of depression (Acute) Tobacco use complicating (Acute) History of drug abuse (Acute) Respiratory failure requiring intubation (Acute) Seizure (Acute) Substance abuse (Acute) Anxiety (Acute) A:PPD#2 P: 1) Routine and discharge instructions 2) learning support services director evaluation completed due to history of drug abuse and current marijuana use 3) Follow up in 2 weeks and 6 weeks 4) D/C home
--- NOTE | 2019-12-09 10:42 | DCINST_ITS ---
Discharge Diet: No Restrictions Discharge Activity: Return to Normal Activity, May not drive while taking narcotic pain medications., May Shower, May Take a Tub Bath May resume sexual activity in: 4-6 weeks Weight Bearing Status: Full weight bearing Additional Activity Instructions:: Nothing in the vagina for 4-6 weeks. You may return to work/school in 6 weeks. Call your doctor if your incision/area has: Continuous Slow Oozing, Sudden Increased Bleeding, Increased Pain/ Swelling, Increased Redness, Foul Smelling Discharge Additional Instructions: If you experience any of the following, contact your healthcare provider. * Bleeding that soaks a pad every hour for 2 hours * Fever 100.4 or higher * Unrelieved incision or abdominal pain * Swelling, redness, discharge or bleeding from your incision or episiotomy site * Your incision begins to separate * Problems urinating (including inability to urinate or burning while urinating). * Visual changes * Severe headache * Flu-like symptoms * Pain or redness in one of both of your breasts * Pain, warmth, tenderness or swelling in your legs, especially the calf area * Frequent nausea and vomiting * Symptoms of depression or anxiety If you experience any of the following, call 911 or go to the nearest Emergency Room. * Chest pain * Problems breathing * Seizure activity * Partial or complete paralysis of a body part, slurred speech, weakness or drooping of the face, or a sudden inability to walk or hold your balance Allergies/Adverse Reactions: Allergies No Known Allergies Allergy (Verified 10/14/19 16:38) Medications to take at Discharge Famotidine 20 mg PO BID 11/20/18 Vitamin Tablet 1 tab PO DAILY 10/14/19 Ibuprofen [Motrin] 600 mg PO Q6H PRN PRN 7 Days #30 tab 12/09/19 The following prescriptions were given: Ibuprofen [Motrin] 600 mg PO Q6H PRN PRN 7 Days #30 tab PRN Reason: Pain Score 1-3 Transmission Status: Pending to [facility]/pharmacy #[id number] Please Follow Up With: Jacquie Kent CNM When: Call to make an appointment with your doctor in 2 weeks6 weeks. If you had elevated Blood Pressure or 4th degree laceration you will need to be seen in 2 weeks. Primary Care Physician: Sophia Nguyen [Primary Care Provider] - Test Results: Test results from this visit will be discussed in further detail at your follow- up appointment, if applicable.
[2019-12-09] MEDS: Famotidine 20 MG Tablet PO (11:13)
[2019-12-09] MEDS: Prenatal Vits Tablet 1 TABLET PO (11:13)
--- NOTE | 2019-12-10 15:09 | CASEMGMT ---
Social Work Attempted to contact [facility], currently closed due to . Will continue to follow. Meconium continues to be pending. Dia SERNA, ISIDRA
--- NOTE | 2019-12-11 14:34 | CASEMGMT ---
Addendum entered by Angela Baird 12/11/19 14:41: Correction. Updated on infant positive urine tox screen. Infant meconium continues to be pending. Original Note: Social Work Telephone call to [facility], Lauren Monae. Updated on MOB's positive tox screen for THC. This executive secretary social welfare also noting that meconium came back positive for THC and updated Lauren on this. Lauren updated on MOB's history and conversation with this executive secretary social welfare. This executive secretary social welfare communicating MOB's safety plan for and other children in the home when using substances. Dia Baird FISH STRAIGHTENER, ANATOLIY-S
== END 2019-12-09 11:37 | disposition home or self-care (01) | DRG 560 ==
LOC: WPOUT 15:25 → WP 15:25
PROVIDERS: Admitting Provider Advanced Practice Midwife; Referring Provider Advanced Practice Midwife; Visit Provider Advanced Practice Midwife
DX: O98.42 Viral hepatitis complicating childbirth (principal); B19.20 Unspecified viral hepatitis C without hepatic coma; O77.0 Labor and delivery complicated by meconium in amniotic fluid; O76 Abnormality in fetal heart rate and rhythm complicating labor and delivery; Z87.891 Personal history of nicotine dependence; Z3A.39 39 weeks gestation of pregnancy; Z37.0 Single live birth
CPT/HCPCS: 59025; 59050; 80307; 81002; 85025; 85027; 86850; 86900; 86901; 99218; J7120; A4216; G0378

== ENCOUNTER 2020-10-27 09:39 | Outpatient (RCR) | payer MEDICAID, SELFPAY ==
--- NOTE | 2020-10-27 09:05 | BH.SGPN.GN ---
Behaviors/Verbalizations/Mental Status: [] Eye contact is good. Motor activity is appropriate. Appearance is casual. Speech is Appropriate. Mood is anxious. Affect is congruent. Thoughts are linear and logical. No evidence of psychosis. Reviewed daily check in sheet and pt reports 1/5 for suicidal thoughts and 0/5 for intent. [place] Suicide screening and risk assessment completed prior to group. Client Response/Progress/Benefit: [] Pt was an active participant in group discussion despite this being her first IOP group. Attentive. Emotion reported to be anxious and nervous. Shared with the group that she has hx of depression and social anxiety. Hope to learn effective coping skills for her emotions in the IOP program. Shared that she has been self-medicating with alcohol recently however has managed to cut back. Reports drinking only 3 days in the past 12. She could not identify anything she has done differently except force myself not to drink. Limited mental health coping skills. No progress noted as this was her first day. Benefited from group support, encouragement, and feedback. Will continue in IOP to maintain safety, prevent decompensation, and to increase healthy coping skills. Narrative Note: []
--- NOTE | 2020-10-27 10:10 | BH.SGPN.GN ---
Behaviors/Verbalizations/Mental Status: []Eye contact is good. Motor activity is appropriate. Appearance is neat. Speech is Appropriate. Mood is anxious. Affect is congruent. Thoughts are linear and logical. No evidence of psychosis. Client Response/Progress/Benefit: []Pt participated during group discussions and attentive during psychoeducation. Participated and provided insight along with peers on obstacles or potholes that hinder our ability to communicate in stressful situations. Group identified the following obstacles; yelling, defensiveness, lack of coping skills, shutting down, over-explaining, crying, and scattered thinking. Pt provided insight on how emotion and mood can impact effective communication. Pt did well in her role in the experiential activity and was able to effectively communicate with peers. Pt also gained insight that she tends to ?implode? and beat herself up when feeling strong emotions rather than explode onto others. Benefited from increased awareness on how our emotions impact our communication. Will continue in IOP to prevent decompensation, improve mood stability, and learn healthy coping skills. Narrative Note: []
--- NOTE | 2020-10-27 11:20 | BH.SGPN.GN ---
Behaviors/Verbalizations/Mental Status: []Client alert and oriented, casually dressed and groomed. Eye contact good. Motor activity WNL. Speech within normal limits. Affect congruent, mood anxious. Thoughts linear, logical, no signs of hallucinations or delusions. Client Response/Progress/Benefit: []Client engaged in session AEB client listening attentively to peers and providing input. Attentive during psychoeducation on 4 zones of regulation (blue, green, yellow and red). Client able to identify feelings and behaviors for each zone. Client identified coping skills one can use to support self in each zone. Client stated belief that she is most often in the yellow and blue zones of alertness because either really anxious or depressed. Client reported this impacts ability to get things accomplished. Benefited from increased education on zones of regulation or stages of alertness for emotions and healthy coping skills to use for each zone. Will continue IOP tx to increase healthy coping, improve daily functioning and prevent decompensation.
--- NOTE | 2020-10-27 14:59 | BH.COMM ---
Communication Note - Communication with Client Communication Note: Met with pt to complete initial paperwork. No significant changes since pre-admission screening. Completed [place] Suicide Screening. Current risk is low. History of one previous suicide attempt via overdose in 2016. Pt was hospitalized and had to get medical attention. History of self-harm, but denies any self-harm since pt was in high school. History of suicidal ideations with thoughts of overdosing or wrecking her car, but denies any suicidal ideations within the past month. Pt admits to having survival ambivalence and reports she does not want to ?I just want to be in a coma for life a week and come out a new person.? Protective factors are her two children. Future-oriented. No access to weapons.
== END 2020-10-28 23:59 ==
LOC: BHIOP 09:39
PROVIDERS: Visit Provider Psychiatry & Neurology Psychiatry
DX: F33.2 Major depressive disorder, recurrent severe without psychotic features (principal)
CPT/HCPCS: H2020

== ENCOUNTER 2020-10-29 08:26 | Outpatient (RCR) | payer MEDICAID, SELFPAY ==
--- NOTE | 2020-10-29 09:00 | BH.SGPN.GN ---
Behaviors/Verbalizations/Mental Status: []Eye contact is good. Motor activity is appropriate. Appearance is casual. Speech is Appropriate. Mood is anxious and frustrated. Affect is congruent. Thoughts are linear and logical. No evidence of psychosis. Reviewed daily symptom tracker pt indicated a 2/5, with 5 being severe, for suicidal ideation and a 0/5 for suicidal intention. This is a decrease in pt's baseline for suicidal thoughts. Does not appear to be imminent risk to harm self or others. Client Response/Progress/Benefit: []Pt responded well to session AEB pt listening attentively to other and sharing thoughts with group. Pt indicated continued depressed feelings on daily symptom tracker. Indicated a slight decrease in anxiety to a 4/5. Pt indicated decrease in self-harm urges and thoughts of suicide. Pt stated her mood has been worse but her functioning has been staying the same. Pt reported significant stressor of her boyfriend being pulled over yesterday for speeding and charged with driving on suspended license. Pt stated she is extremely anxious because will need to find a job if he goes to care home. 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 Pt stated she doesn't know her boyfriend is going to care home but stated I'm a pessimist. Pt reported needed to prepare for the worse case scenario. Identified mental health wins as not drinking alcohol yesterday instead going on a walk, taking daughter to soccer, and using opposite action. Progress noted with pt using healthy coping skills when faced with significant stressor last night. Pt to continue IOP to continue use of healthy coping, challenge negative thoughts and prevent decompensation. Narrative Note: []
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
--- NOTE | 2020-10-29 11:10 | BH.SGPN.GN ---
Behaviors/Verbalizations/Mental Status: []Client alert and oriented, casually dressed and groomed. Eye contact good. Motor activity appropriate. Speech within normal limits. Affect constricted, mood dysthymic. Thoughts linear, logical, no signs of hallucinations or delusions. Client Response/Progress/Benefit: []Client responded well to session, taking notes, and contributing ideas. Group discussed the different categories of coping skills which included distraction, emotional release, grounding, self-love, and thought challenging. Client participated in creating a coping skills ?menu? from the different categories of coping skills. Client's coping skill menu included: going for walks, attending therapy, body scan, affirmations, and opposite action. Appeared to benefit from increasing repertoire of healthy coping skills. Will continue tx to prevent decompensation, improve overall functioning, and reduce passive thoughts of . Narrative Note: []
[2020-10-29 11:49] VITALS: BP 127/89; PULSE 71
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
--- NOTE | 2020-10-29 13:12 | BH.DR.ITP ---
Initial Treatment Plan Patient Information Visit Information: ADMISSION DATE: EXPECTED LOS: 4-6 weeks Problems/Symptoms Problem #1:: Depression Symptom:: Sadness, lack of motivation, hopelessness, worthlessness, anhedonia, increased appetite, fatigue, low energy, decreased concentration, guilt, passive thoughts of Problem #2:: Anxiety Symptom:: Worry, rumination, social anxiety, panic attacks
--- NOTE | 2020-10-31 09:04 | BH.SGPN.GN ---
Behaviors/Verbalizations/Mental Status: Client alert and oriented, casual dress. Eye contact good. Motor activity appropriate. Speech within normal limits. Affect congruent, mood euthymic . Thoughts linear, logical, no signs of hallucinations or delusions. Reviewed client?s symptom tracker, no signs of suicidal ideation, plan, or intent as of today. Client Response/Progress/Benefit: Client was engaged and provided insight to others throughout group this date. Client reported her emotion of the day to be ?content and anxious,? identifying a stressor of her significant other having to go to court for driving with a suspended license and the consequences of that. Client also discussed feelings of ?mom guilt,? feeling that she is not doing enough because she is not currently employed, but did identify that this feeling is not founded, and that she does a lot for her family. Client discussed wins of doing a large amount of laundry, as well as getting up and getting dressed this morning. Appeared to benefit from discussion of recognizing positives and mental health wins. Clinician and client set goal of client to keep track of tasks completed to work on recognizing accomplishments. Will continue IOP tx to promote healthy coping skill application, improve depression and anxiety management, and prevent decompensation. Narrative Note: []
--- NOTE | 2020-10-31 10:10 | BH.SGPN.GN ---
Behaviors/Verbalizations/Mental Status: []Eye contact is good. Motor activity is appropriate. Appearance is casual. Speech is Appropriate. Mood is euthymic. Affect is congruent. Thoughts are linear and logical. No evidence of psychosis. Client Response/Progress/Benefit: []Pt was an engaged participant in group discussions. Attentive and provided insights during psychoeducation on benefits and disadvantages of anxiety and review of different types of Anxiety Disorders (Social Anxiety, LAURA, OCD, PTSD, and Separation Anxiety). Completed worksheet on identifying her own physical symptoms or signs of anxiety which pt identified most frequent physical signs as: upset stomach, increased appetite, fidgeting, tension, headaches, heavy breathing, hyper and tight chest. Benefited from increased awareness of physiological signs of anxiety as well as differences between 'normal' anxiety and anxiety disorder. Will continue in IOP to increase consistent use of healthy coping, challenge negative thoughts and prevent decompensation.
--- NOTE | 2020-10-31 11:15 | BH.SGPN.GN ---
Behaviors/Verbalizations/Mental Status: []Client alert and oriented, casually dressed and groomed. Eye contact good. Motor activity appropriate. Speech rambling. Affect congruent, mood euthymic. Thoughts linear, logical, no signs of hallucinations or delusions. Client Response/Progress/Benefit: []Client was an active participant in group discussion and providing good insight to peers. Reviewed safety behaviors she engages in that reinforce anxiety. Attentive during psychoeducation on mindfulness coping skills and their impact on mental health wellness. The group worked together to brainstorm anxiety reduction strategies. Client shared she used a body scan last night and this did help client sleep. Client reports plan to start reading again to practice mindfulness. Client reports long-standing history of social anxiety and reports today she is going to the store alone which is progress. Client seemed to benefit from increased repertoire of anxiety reduction skills. Client will continue IOP tx to prevent decompensation, improve overall functioning, and gain healthy coping skills. Narrative Note: []
--- NOTE | 2020-11-05 10:10 | BH.SGPN.GN ---
Behaviors/Verbalizations/Mental Status: [] Eye contact is good. Motor activity is appropriate. Appearance is casual. Speech is Appropriate. Mood is anxious. Affect is congruent. Thoughts are linear and logical. No evidence of psychosis. Client Response/Progress/Benefit: [] Pt was an active participant in group discussions. Attentive during psychoeducation. Pt along with peers added their perspective on the definition of stigma as it relates to mental health. Pt participated in interactive group discussion on the topic. Pt along with peer identified how stigma can impact one which included; keeps one more depressed, keeps one from recognizing or addressing mental health, keeps us with showing and being honest about our emotions, keeps one from opportunities, can keep one from social and interacting with friends/family, etc, can impact relationships, and can keep one from seeking help for fear of being labeled. Benefited from increased awareness of mental health stigma and how it could impact patient. Will continue in IOP to prevent decompensation, increase healthy coping skills, and improve functioning. Narrative Note: []
--- NOTE | 2020-11-05 11:15 | BH.SGPN.GN ---
Behaviors/Verbalizations/Mental Status: []Client alert and oriented, casually dressed, hygiene appeared to be tended to. Eye contact good. Motor activity appropriate. Speech within normal limits. Affect congruent, mood euthymic. Thoughts linear, logical, no signs of hallucinations or delusions. Client Response/Progress/Benefit: []Client engaged participant AEB pt provided some input during small group discussion, taking notes and listening attentively to others. Group brainstormed strategies to combat social and perceived stigma which included: educating others, no longer using negative language about mental illness, being open about mental health, and not reinforcing stigma with behaviors or labels. Client did not share goal to challenge mental health stigma. Client showing progress with improved insight and reporting improved mood. Appeared to benefit from increasing awareness of strategies to combat stigma. Will continue IOP tx to continue use of healthy coping, challenge distorted thoughts and prevent decompensation. Narrative Note: []
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
--- NOTE | 2020-11-05 11:43 | BH.MTP_ITS ---
Master Treatment Plan - Patient Information Program Physician:: Enedina Honeycutt Primary Therapist:: Efrain Massey - Psychiatric Diagnoses Psychiatric Diagnoses:: MDD, recurrent, severe, w/o psychosis. LAURA Diagnosis Code(s):: F33.2, F41.1 - Estimated LOS Estimated LOS (in weeks):: 6 Problem/Goal #1 - Problem/Goal #1 Stated Goal:: Client will reduce depression, poor motivation, low energy, passive thoughts of , and hopelessness due to Major Depressive Disorder through [facility] Services AEB reduction on the DSM outcomes depression scales. Description of Barriers: Limited support, psychosocial stressors, unhealthy coping skills. Functional Impact: Depression interfering with social and familial responsibly. Depression leading to self-medication with alcohol. - Objectives Objective #1 Stated Objective: Client will identify 2-3 cognitive distortions that lead to mood dysregulation and learn 2-3 ways to manage these thoughts to improve mood stability. Interventions: Client will be provided with education on cognitive distortions, mistaken beliefs, and identifying and combating negative self-talk. Discharge Criteria: Able to identify most used cog. distorion and be able to identify strategies to challenge these negative thoughts. Target Date: 12/11/20 Review Date: 11/27/20 Problem/Goal #2 - Problem/Goal #2 Stated Goal:: Client will reduce the frequency, intensity and duration of anxiety, ruminations, and irritability while increasing ability to function on daily basis AEB self-report and reduction of scores on the DSM anxiety scales. Description of Barriers: Limited support, psychosocial stressors, unhealthy coping skills. Functional Impact: Anxiety interfering with social and familial responsibly. Depression leading to self-medication with alcohol. - Objectives Objective #1 Stated Objective: Implement calming and coping strategies to reduce overall anxiety and to cope with the experience of panic. Interventions: Therapist will teach client coping skills to improve emotional regulation, mindfulness, and distress tolerance to help client cope with anxiety in the moment. Discharge Criteria: Pt will be able to identify 2-4 calming strategies to minimize anxiety and panic Target Date: 12/11/20 Review Date: 11/27/20 Objective #2 Stated Objective: Learn and implement problem solving and/or conflict resolution skills to manage interpersonal problems and identify 5 physical warning signs of anger and 5 ways to calm and manage anger Interventions: Through individual and group counseling will explore the client?s self-talk that mediates his/her angry feelings and actions. Identify and challenge biases, assisting him/her in generating appraisals and self-talk that corrects for the biases and facilitates a more flexible response to frustration. Combine new self-talk with calming skills as par of a set of coping skills to manage anger. Discharge Criteria: Client will be able to identify and implement conflict resolution skills, 5 warning signs of anger, and 5 ways to calm. Target Date: 12/11/20 Review Date: 11/27/20
--- NOTE | 2020-11-05 11:43 | BH.MDN ---
Multi-Disciplinary Note - Note 45-min Individual Time Started:: 09:15 Date: 11/05/20 Purpose of session/treatment goals addressed:: Reviewed current symptoms and progress in IOP. Used the session to begin treatment planning and goal setting. Eye Contact:: Fair Motor Activity:: Appropriate Appearance:: Disheveled Speech:: Appropriate Mood:: Anxious Affect:: Congruent Thoughts:: Linear, Logical, No evidence of hallucinations/delusions noted Staff Interventions:: CBT techniques - education on cognitive distortions, rapport building, treatment planning, goal setting Client Response:: Pt reports that IOP is going OK. Denies any issues or concerns. She reports some progress since starting the program stating that she has not drank in 2 weeks and is utilizing some skills learned (mindfulness) to help when she is feeling overwhelmed emotionally. When asked what goals she has for the program she states learn healthy coping skills. She also reports that its important for her to find ways to manage her stressful life and not to drank to self-medicate her depression. Identified several psychosocial stressors which involve her children, BF, finances, and keeping up with her responsibilities. Risks/Concerns:: No risks or concerns noted. Progress Toward Goals/Plan:: Progress noted per pt report as she reports not drinking to self-medicate and some improvement in mood. Has been consistent and engaged in IOP. Medication compliant. Continues to reports daily depression which impacts her functioning. Low energy. Ruminations. Significant psychosocial stressors and reports limited healthy coping skills. Plan is to continue in IOP to prevent decompensation, increase healthy coping, and to increase functioning. Time Stopped:: 10:00
--- NOTE | 2020-11-06 09:05 | BH.SGPN.GN ---
Behaviors/Verbalizations/Mental Status: [] Eye contact is good. Motor activity is appropriate. Appearance is disheveled. Speech is Appropriate. Mood is depressed. Affect is flat. Thoughts are linear and logical. No evidence of psychosis. Reviewed daily check in sheet and no reports of suicidal ideations or intent. Client Response/Progress/Benefit: [] Pt participated at times during the group session. Attentive. Emotion for today is content. Mental health win was I turned down a beer. Shared with the group why this win was significant. Stressors include constantly being on the move. Numerous responsibilities through the day as she has to drive her BF to and from work as well as care for infant and other child. She reports that she is trying to use skills that she has learned in IOP. Progress noted per pt report. Benefited from group support, encouragement, and feedback. Will continue in IOP to maintain safety, increase healthy coping, and prevent decompensation. Narrative Note: []
--- NOTE | 2020-11-06 11:12 | BH.SGPN.GN ---
Behaviors/Verbalizations/Mental Status: []Client alert and oriented, casually dressed and appropriately groomed. Eye contact fair. Motor activity appropriate. Speech within normal limits. Affect congruent, mood euthymic. Thoughts linear, logical, no signs of hallucinations or delusions. Client Response/Progress/Benefit: []Client was an active participant AEB providing input throughout discussion and listened attentively to others. Connected with group topic of perspective and the impacts of one?s perspective on mental health. Client worked with the group to identify impact of a negative perspective which included: all or nothing thinking, increased negative self-talk, and hurts relationships. Client stated she agreed with another group member that she also can be a negative person which impacts her relationships. Client appeared to benefit from increasing understanding of mental health benefits of a positive perspective and potential consequences to progress when perspective is negative. Client is to continue IOP to continue use of healthy coping, challenge negative thinking and prevent decompensation. Narrative Note: []
--- NOTE | 2020-11-06 11:16 | BH.SGPN.GN ---
Behaviors/Verbalizations/Mental Status: []Client alert and oriented, casually dressed and groomed. Eye contact good. Motor activity appropriate. Speech within normal limits. Affect congruent, mood dysthymic. Thoughts linear, logical, no signs of hallucinations or delusions. Client Response/Progress/Benefit: []Pt did well to remain attentive and actively engaged throughout session AEB taking notes and providing personal examples and input throughout. Reported connecting with discussion reviewing benefits of recognizing personal strengths and importance of taking a strengths-based approach in addressing stressors and managing mental health symptoms. Expressed struggling with often disqualifying her own personal positives due to negative self-talk. Pt completed strengths exploration worksheet and identified personal strengths to include: empathy, kindness, love, fairness, and honesty. Pt shared that working to recognize these personal strengths more consistently will help improve her self-talk and mood stability. Shared wanting to focus on fostering personal strength of self-discipline by creating small daily goals for herself. Benefited from identifying personal strengths and strategies for enhancing use of identified strengths. Pt to continue IOP tx to further improve mood stability, reduce urges to self-sabotage, maintain sobriety, and improve healthy coping repertoire. Narrative Note: []
--- NOTE | 2020-11-07 09:10 | BH.SGPN.GN ---
Behaviors/Verbalizations/Mental Status: [] Eye contact is good. Motor activity is appropriate. Appearance is discheveled. Speech is Appropriate. Mood is depressed. Affect is flat. Thoughts are linear and logical. No evidence of psychosis. Reviewed daily check in sheet and no reports of suicidal ideations or intent. Client Response/Progress/Benefit: [] Pt was an active participant in group discussion on empathy vs sympathy. Attentive. Daily symptom tracker notes 5 for anxiety, depression, and agitation. Emotion for today is tired. Mental health wins included completing some self-care yesterday and having plans today to spend time with a friend (more self-care). She talked at length regarding her responsibilities throughout the day which are overwhelming. Caring for her kids, , and completed numerous mundane tasks. Seeing the day more as things that she needs to complete rather than things she is looking forward too. Remains sober. Progress noted per pt report as she is managing her mood more effectively. Benefited from group support, encouragement, and feedback. Will continue in IOP to prevent decompensation, increase health coping skills, and stabilize mood. Narrative Note: []
--- NOTE | 2020-11-07 10:10 | BH.SGPN.GN ---
Behaviors/Verbalizations/Mental Status: []Client alert and oriented, casually dressed and groomed. Eye contact good. Motor activity appropriate. Speech within normal limits. Affect congruent, mood euthymic. Thoughts linear, logical, no signs of hallucinations or delusions. Client Response/Progress/Benefit: []Client engaged participant as shown by active listening and contributing to discussion. Client contributed to the discussion of self-care and the consequences of not practicing self-care. Client helped the group discuss benefits of self-care. Client stated you'll get burned out if don't take care of self. Worked with group to identify consequences of poor self-care which included: increased depression, increased anxiety, irritable, and difficulty functioning. Client participated in the discussion on debunking of myths about self-care. Client seemed to benefit from increased awareness of the importance of self-care and challenging common myths that prevent practicing self-care. Will continue IOP tx to increase healthy coping, challenge negative thoughts and prevent decompensation.
--- NOTE | 2020-11-07 11:18 | BH.SGPN.GN ---
Behaviors/Verbalizations/Mental Status: []Client alert and oriented, casually dressed and groomed. Eye contact good. Motor activity appropriate. Speech within normal limits. Affect congruent, mood depressed. Thoughts linear, logical, no signs of hallucinations or delusions. Client Response/Progress/Benefit: []Client engaged participant AEB client taking notes and providing input during discussion, as well as listening attentively to peers. Participated throughout group discussion on the various areas of self-care, benefits, and types of self-care activities for each area. Client completed worksheet which identified current self-care practices and what self-care activities client wants to start using. Client shared doing best in the area of spiritual self-care and would like to begin working to improve upon areas of physical and financial self-care. Identified plans to work on doing so by scheduling and attending regular doctor?s appointments, as well as creating a budget for herself and her family. Appeared to benefit from completing the self-care evaluation and gaining insights into current self-care practices, as well as identifying areas in which she would like to improve upon. Will continue IOP tx to prevent decompensation, maintain sobriety, and continue to increase mood stability. Narrative Note: []
--- NOTE | 2020-11-10 09:05 | BH.SGPN.GN ---
Behaviors/Verbalizations/Mental Status: Eye contact is good. Motor activity is appropriate. Appearance is casual. Speech is Appropriate. Mood is stressed. Affect is incongruent, AEB laughing when frustrated. Thoughts are linear and logical. No evidence of psychosis. Reviewed daily check in sheet and no reports of suicidal ideations or intent. Client Response/Progress/Benefit: Client was engaged and provided insight to others during group session. Client reported emotion of the day as frustrated, stating her boyfriend as being a stressor. Client reports setting boundaries with her boyfriend by attending group three times a week, though he expresses being displeased with this. Client appeared to benefit from supportive group environment. Client expressed feeling as though her boyfriend thinks her being a [id number] mom is easier than his job, which she finds frustrating. Client stated utilizing self-care such as reading, taking walks with her kids, and coming to group. Client reports utilizing health coping skills and that she has refrained from using alcohol as a coping mechanism, as it just makes me feel worse. Client reported that her mood has been generally better per daily symptom tracker but reported anxiety as moderate-severe and agitation as moderate. Client and clinician set goal for client to identify coping skills used throughout the day to work on recognizing progress. Will continue IOP treatment to continue to learn to verbalize healthy boundaries and apply healthy coping skills.. Narrative Note: []
--- NOTE | 2020-11-10 10:08 | BH.SGPN.GN ---
Behaviors/Verbalizations/Mental Status: []Client alert and oriented, casually dressed and groomed. Eye contact good. Motor activity appropriate. Speech within normal limits. Affect full, mood euthymic and reports being stressed. Thoughts linear, logical, no signs of hallucinations or delusions. Client Response/Progress/Benefit: []Client engaged in session AEB taking notes and contributing to discussion. Client shared connecting with the importance of setting boundaries and noted that boundaries ?are a hard thing to do because I put not disappointing others over not disappointing myself?. Went on to explain that this has led to increased depression and isolation in the past. Client assisted group with identifying benefits of setting boundaries such as reduced stress, clearer guidelines and expectations, better able to get needs met, and increased self-esteem. Contributed to discussion on barriers to setting and maintaining healthy boundaries, reflecting that poor self-control has been a barrier for her in the past. Listened and engaged during psychoeducation on different types of boundaries, providing insight and examples throughout. Client seemed to benefit from increased awareness of how boundaries impact mental health and the different types of boundaries there are. Progress noted in client reports of increased insight and beginning to more actively apply skills learned to manage daily stressors. Will continue IOP tx to improve distress tolerance skills, continue to promote healthy change behaviors, and further improve communication with supports. Narrative Note: []
--- NOTE | 2020-11-10 11:10 | BH.SGPN.GN ---
Behaviors/Verbalizations/Mental Status: []Client alert and oriented, casual dress, hygiene appropriate. Eye contact good. Motor activity appropriate. Speech within normal limits. Affect congruent, mood euthymic. Thoughts linear, logical, no signs of hallucinations or delusions. Client Response/Progress/Benefit: []Client responded well to session, connecting with peers and receptive to supportive statements. Client engaged in the boundary self-assessment activity and attentive during psychoeducation on the different boundary styles. Client reported she struggles with setting boundaries with others and stays in relationships that takes more than gives. Client reported she most often is porous boundary style. Able to identify negative impact this has on her mental health. Client participated in brainstorming strategies to improve boundary setting. Client to continue IOP tx to improve self-esteem, increase healthy coping, and prevent decompensation. Narrative Note: []
--- NOTE | 2020-11-12 09:05 | BH.SGPN.GN ---
Behaviors/Verbalizations/Mental Status: Eye contact is good. Motor activity is appropriate. Appearance is casual. Speech is appropriate. Mood is stressed. Affect is incongruent AEB laughing when frustrated. Thoughts are linear and logical. No evidence of psychosis. Reviewed daily check in sheet with no reports of suicidal ideations, plan, or intent. Client Response/Progress/Benefit: Client provided insight and was attentive throughout group session. Reports her emotion of the day as ?rushed and stressed.? 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 Stated that she attempted to utilize a habitat conservation planner to break down her schedule to make her feel less rushed, but it was unsuccessful. Clinician and client discussed importance of self care, identifying current self-care practices as coming to IOP and going on walks with her children. Group and clinician provided suggestions for self care activities, which client seemed to benefit from. Client set a goal to set aside time for herself to take a long shower. Appeared to benefit from supportive group environment. Will continue IOP treatment to promote self worth and decrease anxiety to allow client to delegate responsibilities to others. Narrative Note: []
--- NOTE | 2020-11-12 10:15 | BH.SGPN.GN ---
Behaviors/Verbalizations/Mental Status: []Client alert and oriented, casually dressed and groomed-for client's baseline. Eye contact good. Motor activity appropriate. Speech within normal limits. Affect constricted, mood irritable and stressed. Thoughts linear, logical, no signs of hallucinations or delusions. Client Response/Progress/Benefit: []Pt was an engaged participant in group discussion, providing input and was attentive during psychoeducation. Participated in short activity about automatic thoughts and shared that mood and past experiences can impact automatic thoughts. Group was primarily educational; therapist introduced and gave examples of the 10 cognitive distortions. Benefited from education and increased awareness of cognitive distortions and role that they play in negative thoughts and emotions. Pt reported connecting with mind-reading, predicting the future, and mental filtering. Shared it is hard not to jump to conclusions when one has had negative past experiences. Will continue IOP tx to prevent decompensation, improve self-care, and increase healthy coping skills. Narrative Note: []
--- NOTE | 2020-11-12 14:44 | BH.MDN_ITS ---
Multi-Disciplinary Note - Note 45-min Individual Time Started:: 11:05 Date: 11/12/20 Purpose of session/treatment goals addressed:: Met with patient to review current symptoms and progress in IOP. Addressed treatment plan goals. Eye Contact:: Good Motor Activity:: Appropriate Appearance:: Disheveled Speech:: Appropriate Mood:: Depressed Affect:: Flat Thoughts:: Linear, Logical, No evidence of hallucinations/delusions noted Staff Interventions:: motivational interviewing, psychoeducation on: - self-care Client Response:: Pt states Oh life just sucks. According to pt her day primarily focuses on accomplishing things that need to be done. As we are talking she reports going over a list of things that she needs to accomplish at home such as; taking the trash out, cleaning bottles, and other tasks. She shared that she believes that her BF often expects her to complete household tasks b/c he works full-time which is frustrating, however she admits that most of the time she does things herself because she doesn't want to hear him bitch or he does it wrong. We problem-solved this and she believes that making a list for him might be the best option. She is completing tasks however reports aside from being a mother reports no purpose or motivation. Also spends little self- care time. View IOP as time to get away and self-care. Cognitive distortion of shoulding very frequently throughout the day. She was open to discussing allowing herself to start pursuing passions that she had in the past such as painting. Insight on how this could be beneficial as well as obstacles. Main obstacles is being too tired. Risks/Concerns:: no risks or concerns noted. Progress Toward Goals/Plan:: Pt attends IOP consistently and is engaged while present. Struggling to internalize skills learned however reports trying certain mindfulness skills. Often uses should statements regarding tasks. Struggles with myth that self-care can only be used when she completed all her tasks (which are endless). Always feels tired which impacts mood and motivation. Depressed, low energy, and limited pleasure in activities. Feels that she has limited support with her children however does not communicate this with BF effectively. Problem-solves some obstacles in communication and she agreed to attempt to increase self-care and to attempt to try and start painting. Has not drank in 20 days. Will continue in IOP to prevent decompensation, increase healthy coping, and improve functioning. Time Stopped:: 11:40
--- NOTE | 2020-11-14 09:03 | BH.SGPN.GN ---
Behaviors/Verbalizations/Mental Status: []Eye contact is good. Motor activity is appropriate. Appearance is casual. Speech is Appropriate. Mood is euthymic. Affect is congruent. Thoughts are linear and logical. No evidence of psychosis. Reviewed daily check in sheet and no reports of suicidal ideations or intent. Client Response/Progress/Benefit: []Pt receptive of session, providing insight throughout group discussion, and willing to process with group. Emotion for today is reported as ?tired but in a good mood?. She attributes this to taking her children to the fair the past two nights, which she identified as enjoyable but overwhelming. Noted this as a mental health win as she often struggles with anxiety when in a crowd. Shared using Tuesday as a practice for the following day which would be much busier. Pt went on to discuss struggling to make time for personal self-care and balance daily responsibilities with time with her family and time for herself. Noting she often puts her self-care ?on the backburner?. Appeared to benefit from the supportive group environment in which pt was able to vent frustrations regarding lack of self-care as well as challenge herself to identify areas of personal progress. Recommended continued IOP tx to improve consistent use of stress management skill, increase communication with supports, and continue to improve ability to set boundaries and make time for self-care. Narrative Note: []
--- NOTE | 2020-11-14 10:10 | BH.SGPN.GN ---
Behaviors/Verbalizations/Mental Status: [] Eye contact is good. Motor activity is appropriate. Appearance is casual. Speech is Appropriate. Mood is anxious. Affect is congruent. Thoughts are linear and logical. No evidence of psychosis Client Response/Progress/Benefit: [] Pt was an active participant in group discussion. Attentive during psychoeducation on Conflict Styles ( Avoidant, Competing, Accommodating, and Cooperative). Participated in interactive group discussion on why we tend to avoid conflict. Pt along with peers identified several reasons conflict is often avoided which included; don't want to deal with it, anxiety, it can be awkward, can cause more problems, don't want to get hurt, don't want to hurt others, and fear of rejection. Pt along with peers also identified the reasons why we need conflict which included; helps us set boundaries, advocacy, helps us express needs/emotions, and can improve relationships. Conflict style she most often uses is accommodating and avoiding as she would rather not fight which leads to her needs not being met. Benefited from increased awareness on conflict styles. Will continue in IOP to prevent decompensation, increase healthy coping skills, and improve functioning. Narrative Note: []
--- NOTE | 2020-11-14 11:10 | BH.SGPN.GN ---
Behaviors/Verbalizations/Mental Status: []Client alert and oriented, casually dressed and groomed. Eye contact good. Motor activity appropriate. Speech within normal limits. Affect constricted, mood irritable. Thoughts linear, logical, no signs of hallucinations or delusions. Client Response/Progress/Benefit: []Client engaged in session AEB contributing to discussion and engaging in activity. Client did well to review current conflict style and its impact on mental health. Acknowledged the impact being accommodating and avoiding has on client?s mental health. Attentive and taking notes during discussion on strategies for more effectively managing conflict in personal life. Client participated in activity and did well, to express her ideas to peers. Client wants to work on taking a time out when her emotions get too heated. Client stated she and her boyfriend do not handle conflict well, so they often raise their voices at each other. Appeared to benefit from gaining strategies to help client better manage conflict. Will continue IOP tx to gain healthy coping skills, learn how to set healthy boundaries, and prevent decompensation. Narrative Note: []
--- NOTE | 2020-11-17 09:05 | BH.SGPN.GN ---
Behaviors/Verbalizations/Mental Status: [] Eye contact is good. Motor activity is appropriate. Appearance is casual. Speech is Appropriate. Mood is irritable. Affect is congruent. Thoughts are linear and logical. No evidence of psychosis. Reviewed daily check in sheet and no reports of suicidal ideations or intent. Client Response/Progress/Benefit: [] Pt was an active participant in group discussion. Attentive. Provided appropriate feedback. Daily symptom tracker notes 05/02 for agitation and anxiety. Emotion for today is I'm in a good mood. Mental health wins included self-care over the weekend. Shared conflict with BF which is consistency a stressor for her. Reports being overwhelmed with responsibilities which is another consistent stressor. She utilized her time to vent frustrations and get support and empathy from peers. Insight into possible strategies to decrease stress however its just easier if I do everything myself. Group challenged this thinking. Progress noted per pt report. Reports improved mood. Benefited from group support, encouragement, and feedback. Will continue in IOP to prevent decompensation, increase healthy coping, and stabilize mood. Narrative Note: []
--- NOTE | 2020-11-17 10:15 | BH.SGPN.GN ---
Behaviors/Verbalizations/Mental Status: []Client alert and oriented, casually dressed and groomed. Eye contact good. Motor activity appropriate. Speech within normal limits. Affect congruent, mood anxious. Thoughts linear, logical, no signs of hallucinations or delusions. Client Response/Progress/Benefit: []Pt was an engaged participant AEB pt contributing to discussion and engaged in activity. Attentive during psychoeducation and taking notes. Appeared to connect with topic of personal pitfalls and how they can impede mental health treatment progress. Pt and peers also discussed reasons why overcoming pitfalls is so challenging. During experiential activity pt along with peers identified several pitfalls from the activity that are also associated with mental health. Pt shared her personal pitfalls include: emotional reactivity, unrealistic expectations, and mental filter. Benefited from group by increasing awareness of pitfalls which can impact mental health. Pt will continue in IOP tx to challenge distorted thoughts, continue use of healthy coping skills and prevent decompensation. Narrative Note: []
--- NOTE | 2020-11-17 11:15 | BH.SGPN.GN ---
Behaviors/Verbalizations/Mental Status: []Client alert and oriented, neatly dressed and groomed. Eye contact fair. Motor activity appropriate. Speech within normal limits. Affect constricted, mood irritable and stressed. Thoughts linear, logical, no signs of hallucinations or delusions. Client Response/Progress/Benefit: []Client receptive of session, engaged throughout AEB client actively listening and contributing to discussion, as well as taking notes. Client completed worksheet identifying personal pitfalls impacting mental health progress. Client identified the following pitfalls: emotional reactivity, unrealistic expectations, and mental filter. Group learned different coping skills to help manage pitfalls. Client selected mental filter as the pitfall client wants to overcome. Client plans to work on this by writing down her wins to help keep track of positives. Benefited from identifying personal pitfalls and strategies to overcome these pitfalls. Client continues to struggle with interpersonal relationship issues that reinforce irritability, anxiety, and depression. Client will continue IOP tx to promote use of healthy coping skills, learn how to set healthy boundaries, and improve mood stability. Narrative Note: []
--- NOTE | 2020-11-20 11:13 | BH.SGPN.GN ---
Behaviors/Verbalizations/Mental Status: []Client alert and oriented, casually dressed and groomed. Eye contact good. Motor activity appropriate. Speech within normal limits. Affect congruent, mood agitated, depressed. Thoughts linear, logical, no signs of hallucinations or delusions. Client Response/Progress/Benefit: []Client was an active participant AEB providing input during discussion and taking notes throughout. Client participated during continued discussion and psychoeducation on the stages of change. Did well to process activity and work with group to relate the barriers and strategies used to overcome the barriers to managing change in own life. Receptive of psychoeducation on using a decisional balance sheet to address uncertainties associated with making changes. Client identified a change she is currently contemplating as ?getting back into art?. Shared potential benefits of this change include: feeling better, fun self-care to do with kids, and tapping back into something enjoyed in the past. Discussed some potential costs preventing from making this change as: it can be messy, my cause frustration, limited time/other responsibilities. Client appeared to benefit from reflecting on the benefits of changing vs. costs of not changing, as well as barriers to change and resources for addressing those barriers. Noted a resource for making change as: gathering the supplies to do something creative. Pt recommended continued IOP tx to continue to improve distress tolerance and use of emotion regulation skills in times of increased anxiety, as well as improve healthy boundaries and communication with supports. Narrative Note: []
--- NOTE | 2020-11-21 09:00 | BH.SGPN.GN ---
Behaviors/Verbalizations/Mental Status: []Pt eye contact good, casually dressed, motor activity appropriate, speech normal rate and tone, mood anxious, congruent affect, thoughts linear and intact, no evidence of delusions or hallucinations. Reviewed client?s symptom tracker, no signs of suicidal ideation, plan, or intent as of today. Client Response/Progress/Benefit: []Pt responded well to session AEB by listening to others and sharing thoughts and feelings. 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 Pt stated stressed that her boyfriend will not be able to get up early enough in the morning to watch their children. Pt reported she has talked with her boyfriend about him adjusting the time he goes to bed. Pt identified additional positive as spending quality time with daughter. Pt to continue IOP to improve emotion regulation, challenge distorted thoughts and prevent decompensation. Narrative Note: []
--- NOTE | 2020-11-25 09:05 | BH.SGPN.GN ---
Behaviors/Verbalizations/Mental Status: []Client alert and oriented, casually dressed and groomed. Eye contact good. Motor activity appropriate. Speech within normal limits. Affect constricted, mood irritable. Thoughts linear, logical, no signs of hallucinations or delusions. Reviewed client?s symptom tracker, no risk for suicidal ideation, plan, or intent as of 11/25/20 Client Response/Progress/Benefit: C[]Client responded well to session, attentive and participating in discussion. Client reports feeling in a decent mood today but was expressing frustration towards her boyfriend. Client started a new job yesterday that is from 8am-1pm and client is worried about how her boyfriend will adjust. Client expressed frustration that her boyfriend complains about sleep and caregiving for their children whereas I just get up and do it. Client shared working is both a positive and stressor for her mental health. Client reports she has been using a lot of opposite action and client used opposite action this morning. Progress noted in client's use of opposite action, however, client continues to report interpersonal relationship issues that impact her mental health. Will continue IOP tx to promote the use of healthy coping skills, gain awareness, and improve daily functioning. Narrative Note: []
--- NOTE | 2020-11-25 10:15 | BH.SGPN.GN ---
Behaviors/Verbalizations/Mental Status: []Client alert and oriented, casually dressed and groomed. Eye contact good. Motor activity appropriate. Speech within normal limits. Affect congruent, mood anxious. Thoughts linear, logical, no signs of hallucinations or delusions. Client Response/Progress/Benefit: []Client receptive to session, participating throughout. Provided input as the group brainstormed the positive and negative aspects of stress on physical and mental health. Group did well to identify the benefits of stress as well as the impact of distress on performance and mental health. Client identified top stressors such as lack of sleep, many responsibilities to care for family, and money problems. Client reports when the stress overflows client will respond with anger outbursts then panic and ends up isolating. Client seemed to benefit from increased awareness of current stressors and impact stress has on mental health. Recommended to continue IOP tx to continue use of healthy coping, challenge distorted thoughts and prevent decompensation. Narrative Note: []
--- NOTE | 2020-11-25 11:15 | BH.SGPN.GN ---
Behaviors/Verbalizations/Mental Status: []Client alert and oriented, casually dressed, client baseline appears disheveled, and grooming tended to. Eye contact good. Motor activity appropriate. Speech within normal limits. Affect congruent, mood anxious, overwhelmed. Thoughts linear, logical, no signs of hallucinations or delusions. Client Response/Progress/Benefit: [] Client engaged throughout AEB providing input, taking notes, and actively participating in challenge activity. Client provided suggestions and listened to other participants? ideas throughout. Able to make connections between activity and stress management skills in daily life. Shared feeling anxious during the activity but that the supportive environment helped to reduce some of her anxiety in the moment, reflecting on the importance of a supportive environment in stress management. Client remained attentive and contributed during discussion about the 4 A's of managing stress, expressing connection with the various benefits of each. Shared wanting to continue to practice the skills of adapt and accept regarding her frustrations with being the only one in the household with a license. Shared she can adapt her schedule so that she is less stressed when having to take her boyfriend somewhere. Client seemed to benefit from increased awareness of the impact of stress on mental health and increasing repertoire of stress management strategies. Will continue IOP tx to prevent decompensation, improve communication and conflict resolution within interpersonal relationships, and continue to promote healthy boundary setting. Narrative Note: []
--- NOTE | 2020-11-26 12:48 | BH.TPR ---
Treatment Plan Review Date of Admission:: 10/27/20 Date of Treatment Plan Review:: 11/26/20 Admitting Diagnoses:: MDD, recurrent, severe w/o psychosis. LAURA. Alcohol Use Disorder. Marijuana Use Disorder. Opiate Use Disorder, full remisson Current Diagnoses:: MDD, recurrent, severe w/o psychosis. LARUA. Alcohol Use Disorder, partial remission. Marijuana Use Disorder. Opiate Use Disorder, full remisson Patient's Response to Treatment:: Consistent and engaged in treatment. Pt reports that IOP is self-care to her and a break from the stressors at home. Based on DSM cross-cutting scales pt has showed a 40% decrease in overall symptoms, a 50% decrease in depression scales, and a 42% decrease in anxiety scales. Reports no suicidal thoughts in the past 2 weeks. Pt's anger has also reduced by 50%. Pt has also been sober since entering IOP. Increased healthy coping skills. Improved communication with support. Status of Current Problems and Symptoms: Pt continues to report low energy and lack of motivation. Difficulty trusting support with tasks which often leads to pt getting overwhelmed. Low frustration tolerance. Struggles with consistent sleep schedule and self-care. Despite this show has shown progress in IOP AEB outcome measurements discussed above. Problem #1 Problem Name:: Depression Status of Goals:: Pt can identify (with assistance) cognitive distortions and negative automatic thoughts however struggles with challenging these consistently and independently. Team Recommendations:: Continued work in group and individual counseling on awareness of distortions and consistently utilizing internal and external coping skills. Will continue in IOP. Problem #2 Problem Name:: Anxiety/Irritability Status of Goals:: Obj1- Pt is able to identify and utilize (At times) calming skills learned to cope with anxiety. Use is not consistent which she often states is due to being too tired. Obj2- Pt often reports not have control over her mood specifically anger. Low frustration tolerance. Unable to identify physiological warning and ways to calm. Team Recommendations:: Recommended to continue in IOP.
--- NOTE | 2020-11-27 09:00 | BH.SGPN.GN ---
Behaviors/Verbalizations/Mental Status: [] Eye contact is good. Motor activity is appropriate. Appearance is disheveled. Speech is Appropriate. Mood is depressed. Affect is flat. Thoughts are linear and logical. No evidence of psychosis. Reviewed daily check in sheet and no reports of suicidal ideations or intent. Client Response/Progress/Benefit: [] Pt was an active participant in group discussion. Attentive. Provided appropriate feedback. Emotion for today is tired. Daily symptom tracker notes 3/5 for anxiety and 2/5 for depression and irritability. Mental health wins include completing household tasks. Shared utilizing skills to work through some anger-inducing moments. Also shared that she started a job last week which she believes will help with her mental health as well as finances. Progress noted per pt report. Benefited from group support, encouragement, and feedback. Will continue in IOP to prevent decompensation and maintain gains. Narrative Note: []
--- NOTE | 2020-11-27 11:10 | BH.SGPN.GN ---
Behaviors/Verbalizations/Mental Status: []Client alert and oriented, casually dressed and groomed. Eye contact fair. Motor activity appropriate. Speech within normal limits. Affect constricted, mood agitated. Thoughts linear, logical, no signs of hallucinations or delusions. Client Response/Progress/Benefit: []Client was an active participant in group discussion and providing good insight to peers. Reviewed safety behaviors she engages in that reinforce anxiety. Some of client?s safety behaviors include reassurance seeking and avoidance. Attentive during psychoeducation on mindfulness coping skills and their impact on mental health wellness. The group worked together to brainstorm anxiety reduction strategies. Client selected creative outlets such as painting as the mindfulness skill client will practice for the next three days. Client seemed to benefit from increased repertoire of anxiety reduction skills. Client will continue IOP tx to reinforce healthy coping skills, further improve self-awareness, and promote mood stability. Narrative Note: []
--- NOTE | 2020-11-27 14:00 | BH.MDN_ITS ---
Multi-Disciplinary Note - Note 45-min Individual Time Started:: 10:15 Date: 11/27/20 Purpose of session/treatment goals addressed:: Reviewed current symptoms and progress in IOP. Reviewed outcome measurements. Discussed aftercare and discharge. Eye Contact:: Good Motor Activity:: Appropriate Appearance:: Disheveled Speech:: Appropriate Mood:: Irritable Affect:: Congruent Thoughts:: Linear, Logical, No evidence of hallucinations/delusions noted Staff Interventions:: psychoeducation on: - low frustration tolerance, anger mgmt, discharge planning, reviewed DSM-5 Client Response:: Pt shared that she started a job last week. Reports both mental health and financial benefits to this decision. The job provides a social outlet, a distraction, and a purpose. The time away is also helping with pt's trust and control issues with her 11 month old. We reviewed her outcome measurements. DSM cross-cutting scales showed a 40% decrease in overall symptoms, a 50% decrease in depression scales, and a 42% decrease in anxiety scales. Reports no suicidal thoughts in the past 2 weeks. Pt's anger has also reduced by 50%. Pt has also been sober since entering [facility]. Increased healthy coping skills. Improved communication with support. Pt also self-reports improved mood. She continues to struggle with self-care and sleep. She is going to bed in the early AM which she attributes to her BF's insomnia and work schedule. This results in her being tired often throughout the day which can impact mood. We discussed strategies to improve sleep in the past and again today. Also introduced low frustration tolerance and anger mgmt skills however pt was not interested. Risks/Concerns:: No risk or concerns noted. Progress Toward Goals/Plan:: Progress noted AEB outcome measurements discussed above. Overall progress noted per pt report. Sober since entering [facility]. No suicidal ideations in over 2 weeks. Continued concern is irritability, sleep, and self-care which all continue to impact mood and functioning. Plan is to continue in [facility] for 2 more weeks to prevent decompensation, increase healthy coping, and improve functioning. Aftercare was discussed and pt will continue with therapist at [facility] and psychiatrist at [facility]. Time Stopped:: 11:00
== END 2020-11-27 23:59 ==
LOC: BHIOP 08:26
PROVIDERS: Visit Provider Psychiatry & Neurology Psychiatry
DX: F33.2 Major depressive disorder, recurrent severe without psychotic features (principal); F41.1 Generalized anxiety disorder; Z72.89 Other problems related to lifestyle; F12.90 Cannabis use, unspecified, uncomplicated; Z79.899 Other long term (current) drug therapy
CPT/HCPCS: 90792; H2012; H2020; S9480; T1002; 90834

== ENCOUNTER 2020-11-28 09:00 | Outpatient (RCR) | payer MEDICAID, SELFPAY ==
[2020-11-28 00:35] VITALS: BP 127/89; PULSE 71
--- NOTE | 2020-11-28 09:03 | BH.SGPN.GN ---
Behaviors/Verbalizations/Mental Status: []Client alert and oriented, casually dressed and groomed. Eye contact good. Motor activity appropriate. Speech within normal limits. Affect congruent, mood anxious, overwhelmed. Thoughts linear, logical, no signs of hallucinations or delusions. Reviewed client?s symptom tracker, suicidal ideation reported as 1/5 which is consistent to baseline, denies any plan, or intent as of 11/28/20. Future oriented Client Response/Progress/Benefit: []Client responded well to session, attentive and providing supportive statements to peers throughout. Client reports feeling tired this morning as she had not slept well last night. Client stated she has difficulties with regulation when her sleep is through off and this can often impact the remainder of the day. Receptive of challenge to identify skills she can use to prevent lack of sleep from negatively impacting her day. Shared she plans to do a fall craft with her children as this will help her to relax while also entertaining them. Shared that her relationship continues to be a stressor and that she continues to struggle with making time for self-care which continues to maintain her anxiety and depression. Appeared to benefit from connecting with peers and supportive feedback. Will continue IOP tx to prevent decompensation, improve overall functioning, and improve healthy communication skills. Narrative Note: []
--- NOTE | 2020-12-01 09:05 | BH.SGPN.GN ---
Behaviors/Verbalizations/Mental Status: [] Eye contact is good. Motor activity is appropriate. Appearance is disheveled. Speech is Appropriate. Mood is irritable. Affect is congruent. Thoughts are linear and logical. No evidence of psychosis. Reviewed daily check in sheet and no reports of suicidal ideations or intent. Client Response/Progress/Benefit: [] Pt was an active participant in group discussion. Attentive. Provided appropriate feedback. Daily symptom tracker notes 3.5 for anxiety and irritability. Mental health wins included being more present during a birthday democrat this weekend, going on a walk, and spending time with support. Believes that she managed her anger over the weekend by utilizing skills. I was more composed than usual. Stressors continue to be sleep and responsibilities. Progress noted per pt report. Benefited from group support, encouragement, and feedback. Will continue in IOP to maintain gains. Narrative Note: []
--- NOTE | 2020-12-01 10:15 | BH.SGPN.GN ---
Behaviors/Verbalizations/Mental Status: []Client alert and oriented, casually dressed and groomed. Eye contact good. Motor activity appropriate. Speech within normal limits. Affect congruent, mood euthymic. Thoughts linear, logical, no signs of hallucinations or delusions. Client Response/Progress/Benefit: []Pt was well engaged in group AEB taking notes, providing input, and listening attentively throughout. Attentive during psychoeducation and discussed the importance of goal-setting with the group. Group identified potential benefits of having goals include: they motivate, build self-confidence, give a sense of accomplishment, and provide a sense of purpose. Group also worked together to identify barriers to goal-setting which included; negative self-talk, lack of motivation, unrealistic expectations, and all or nothing thinking. Pt reported she struggles with ?shoulding? on herself and ?only setting long-term goals.? Benefited from increased awareness of benefits and barriers to goal-setting. Will continue IOP tx to further improve daily functioning and reduce negative self-talk. Narrative Note: []
--- NOTE | 2020-12-01 11:16 | BH.SGPN.GN ---
Behaviors/Verbalizations/Mental Status: []Client alert and oriented, casually dressed and groomed. Eye contact good. Motor activity appropriate. Speech within normal limits. Affect congruent, mood euthymic, stressed. Thoughts linear, logical, no signs of hallucinations or delusions. Client Response/Progress/Benefit: []Pt was an active participant in group discussions and challenge activity. Engaged as group worked to create an example SMART goal as well as identify resources for overcoming barriers to achieving the identified goal. Providing input throughout. Pt identified a SMART goal for the next week as ?Be creative at least 2x over the next week?. Reported this would help improve positivity and increase engagement in activities she enjoys. Identified lack of motivation as a barrier. Pt reported she can overcome that barrier by sharing her goal with her daughter to help hold her accountable. Benefited from group by being able to utilize SMART educate to create a goal. Pt to continue IOP to increase healthy conflict resolution and communication with supports, promote use of distress tolerance skills, and prevent decompensation. Narrative Note: []
--- NOTE | 2020-12-03 10:14 | BH.SGPN.GN ---
Behaviors/Verbalizations/Mental Status: []Client alert and oriented, casually dressed and groomed. Eye contact good, tearful near end. Motor activity appropriate, often laying head down on table. Speech within normal limits. Affect congruent, mood tired, stressed, depressed. Thoughts linear, logical, no signs of hallucinations or delusions. Client Response/Progress/Benefit: []Client responded well to session, attentive and providing input throughout. Participated in discussion of things that can keep people feeling trapped or stuck in life including; avoidance, unhealthy coping, isolation, inconsistent boundaries, and surrounding self with toxic people. Shared connecting with lashing out. Group discussed the connection between thoughts, emotions, and behaviors as well as how negative thinking can keep a person stuck. Client attentive during psychoeducation on maintenance cycles. Client able to identify negative thoughts that have kept client stuck which included ?I?ll never be good enough? and ?I?ll never be anything?. Client became tearful in discussing distortions and indicated feeling more emotionally vulnerable as she has not slept. Appeared to benefit from gaining awareness of how negative thoughts reinforce mental health symptoms and keep people stuck. Will continue IOP tx to prevent decompensation, increase communication with supports and emotion regulation skills, as well as continue to promote healthy boundary setting. Narrative Note: []
--- NOTE | 2020-12-03 13:44 | BH.COMM ---
Communication Note - Communication with Client Communication Note: Pt was an hour late to IOP and was tearful. Therapist approached pt who stated that she was upset due to nobody waking me up this morning and poor sleep. States that she is upset with her BF who let her sleep in. Asked if she wanted to talk privately and she stated no I can work through this. Respected her wishes. Staff let me know that pt left after second group stating that she was tired and needed to get some sleep. She reported anxiety and denied any depression or suicidal thoughts.
--- NOTE | 2020-12-04 09:00 | BH.SGPN.GN ---
Behaviors/Verbalizations/Mental Status: []Client alert and oriented, casually dressed and groomed. Eye contact good. Motor activity appropriate. Speech within normal limits. Affect constricted, mood anxious. Thoughts linear, logical, no signs of hallucinations or delusions. Reviewed client?s symptom tracker, no risk for suicidal ideation, plan, or intent as of 12/04/20 Cllient Response/Progress/Benefit: []Client responded well to session, providing supportive statements. Client reports feeling exhausted this morning. Client shared she went to the ER in [place] yesterday due to severe anxiety and later found out this was because she had not been taking her medications for the past three days. Client reports she did not do this on purpose and that it likely happened because client has been busy with work. Client reports feeling better now and stated she has come up with a better plan so client does not forget to take her medications in the future. Client continues to struggle with managing stress and lack of self-care. Will continue IOP tx to promote use of healthy coping skills and improve self-care. Narrative Note: []
--- NOTE | 2020-12-04 10:10 | BH.SGPN.GN ---
Behaviors/Verbalizations/Mental Status: [] Eye contact is good. Motor activity is appropriate. Appearance is disheveled. Speech is Appropriate. Mood is anxious. Affect is congruent. Thoughts are linear and logical. No evidence of psychosis. Client Response/Progress/Benefit: [] Pt was an active participant in group discussions and activity. Attentive during psychoeducation. Along with peers provided insight into topics discussed which included; What is social support? Why is social support important? What are the benefits of using our supports? How does a lack of strong social supports impact our mental health and symptom management? Engaged in interactive discussion on the above topics. Participated in activity and was able to connect the activity to the topic of creating and maintaining a balance of social supports. Benefited from increase awareness of the benefits to a balanced social support and ways to create new social supports. Will continue in IOP to prevent decompensation, stabilize mood, and increase healthy coping. Narrative Note: []
--- NOTE | 2020-12-04 11:03 | BH.SGPN.GN ---
Behaviors/Verbalizations/Mental Status: []Client alert and oriented, casually dressed and groomed. Eye contact good. Motor activity appropriate. Speech within normal limits. Affect congruent, mood dysthymic. Thoughts linear, logical, no signs of hallucinations or delusions. Client Response/Progress/Benefit: []Client an active participant throughout AEB contributing to discussion and taking notes. Client participated in the group activity highlighting the various barriers to effectively utilizing supports and strategies for improving support. Participated in discussion of the 5 ways our supports can support us (emotional, tangible, affirmational, network/belonging, and instructional) and the group listed examples for all types. Client reports wanting to work on increasing tangible and emotional supports, noting this will help reduce stress and provide her more time for self-care. Client plans to do this by reaching out and asking for help, spending more time with family, as well as keeping track of small accomplishments. Client seemed to benefit from identifying the type of support and how this support will aid in promoting overall mental wellness. Will continue IOP tx to prevent decompensation, continue to promote mood stability, and improve self-care. Narrative Note: []
--- NOTE | 2020-12-04 13:36 | BH.COMM ---
Communication Note - Communication with Client Communication Note: Pt shared with therapist that she went to [facility] ER yesterday due to a panic attack. Reports that she had not been taking her medications for 3 days and had limited sleep. I was just to busy to take the medications. She started back on medications yesterday and reports still being anxious however feeling much better than yesterday. She was suppose to meet with her therapist outside of [facility] today however reports that she has COVID. She did not want to meet today as she was running behind. Reached out to pt's therapist Leslie Davies to discuss progress in IOP. We did discuss the events yesterday and going to the ER. Overall pt has reported progress and sobriety since entering [facility]. Unclear if trigger to significant anxiety and panic yesterday was related to non-compliance with meds and poor sleep or another psychosocial stressor. Will pull out of group during her next visit to speak with patient.
--- NOTE | 2020-12-10 09:00 | BH.SGPN.GN ---
Behaviors/Verbalizations/Mental Status: []Eye contact is good. Motor activity is appropriate. Appearance is casual. Speech is appropriate. Mood is anxious. Affect is congruent. Thoughts are linear and logical. No evidence of psychosis. Reviewed daily symptom tracker sheet with no reports of suicidal ideations, plan, or intent. Client Response/Progress/Benefit: []Client was attentive and engaged throughout group session, providing insight in group discussion. Client reported her emotion of the day as ?anxious.? Client discussed positives of going to work and attending her daughter?s soccer game yesterday. Client reported a stressor of feeling guilty that her grandmother is watching her children in the mornings due to her boyfriend working third shift. Client reported using self care of going on walks and taking time to be by herself to help with her guilt which is progress. Client appeared to benefit from supportive group environment. Will continue IOP treatment to increase anxiety management skills, and maintain use of self care. Narrative Note: []
--- NOTE | 2020-12-10 11:28 | PCM.BH.PN ---
Progress Note Progress Note: History of Present Illness/Interim History: [] The patient is a 25-year-old female with a history of depression, anxiety, and polysubstance abuse who is seen in follow-up at the [facility] behavioral health IOP program. I last saw the patient over 1 month ago and at that time we started Wellbutrin XL to help with her depression. The patient has been taking this medication and feels that it is improved her symptoms. She is tolerating it well and has no side effects on it. She says she feels much less depressed. She has more energy on this medication and is getting more done at home. She also has more motivation when she gets up in the morning. The patient states that she did have a problem where she forgot to take her medications for 3 days due to being busy with her 2 children and her new job. Missing her medications for 3 days resulted in her having to go to the emergency room for panic attack for which she was given Ativan. That is the only panic attack she has had in the past 5 or 6 weeks. The patient's new job is at a [employer] and she works there about 15 hours a week and is enjoying it. The patient denies any suicidal ideation or passive thoughts of now. She denies homicidal ideation, hallucinations, delusions or symptoms of [place]. Patient absolutely denies any alcohol use or any other drug use and especially denies any use when she missed her medications for 3 days. She last used alcohol around October 23, 2020. She denies any other substance use also except for her marijuana. Current Psychiatric Medications: [] Effexor XR 187.5 mg p.o. daily( missed 3 days but went back on it); Wellbutrin XL 150 mg p.o. every morning (x5+ weeks now); Xanax 1 mg p.o. as needed for panic attacks (she takes it about 13 times a month); she was given 9 Ativan's in the emergency room and has some left with no refills. Mental Status Examination: [] The patient is a 25-year-old female who is seen wearing a mask due to the pandemic and is casually dressed and groomed with good hygiene. She has no psychomotor agitation or retardation. She is cooperative and pleasant during the interview. Eye contact is good and speech is normal rate and rhythm and fluent with no pressure. Mood is euthymic. Affect is full and. Thought process is goal-directed and organized. Thought content: There is no evidence of passive thoughts of , suicidal ideation, homicidal ideation, hallucinations, delusions or symptoms of [place]. Reality testing is intact. Judgment is limited. Insight is limited. Impulsivity is high. Diagnoses: [] 1. Major depressive disorder, recurrent, severe without psychosis (resolving) 2. Generalized anxiety disorder 3. Strong cluster B traits 4. Alcohol use disorder, sober x6 weeks 5. Marijuana use disorder 6. History of opiate use disorder (in full remission for 2 years) 7. Primary support and financial issues Plan: [] The patient will continue the IOP program at [facility] as the structure, education, support, and group therapy will hopefully prevent worsening of the patient's symptoms. She felt safe during the interview and if it anytime she does not feel safe she will let us know or go to the emergency room. The risks, options, possible complications and side effects of the medications were again discussed with the patient. And she understands and accepts them. She understands that it is extremely important to never miss taking her medications and that the withdrawal from especially Effexor can be serious. Patient is encouraged to find some strategies to never miss her medications. She is also strongly encouraged to remain sober and to take the least amount of Xanax and Ativan that she needs. Patient will continue to follow-up with her outpatient medical and psychiatric providers.
--- NOTE | 2020-12-10 12:15 | BH.MDN ---
Multi-Disciplinary Note - Note 30-min Individual Time Started:: 11:30 Date: 12/10/20 Purpose of session/treatment goals addressed:: Reviewed progress and current symptoms. Reviewed discharge date and aftercare plans. Eye Contact:: Good Motor Activity:: Appropriate Appearance:: Disheveled Speech:: Appropriate Mood:: Anxious Affect:: Congruent Thoughts:: Linear, Logical, No evidence of hallucinations/delusions noted Staff Interventions:: discharge planning Client Response:: We processed her panic attacks and eventually ER visit on 12/03/20. She denies that she relapsed on alcohol or any substances. States that she was feeling more anxious 2 days prior to ER visit however thought that this was related to new job and other responsibilities. After leaving [facility] on 12/03/20 she took a nap however upon waking was still very anxious. She was concerned as no skills were working. She drive herself to the ER and upon returning her friend asked are you taking your medications? Pt then looked at her daily pill container and noticed she missed 3 days. We discussed strategies to ensure medication compliance in the future which she was receptive. She also was able to identify symptoms which could be indicators or physical symptoms that she has forgotten to take medications for future reference. Reports stability for the past 5 days. We reviewed her treatment plan goals and she is able to identify2-3 cognitive distortions, ways to manage these distortions (thought-reframing), anxiety calming strategies, and 5 warning signs to anger and anger mgmt skills. Risks/Concerns:: no risks or concerns noted. Progress Toward Goals/Plan:: Pt has met treatment plan goals and no longer meets criteria for IOP. Plan is to discharge tomorrow. Aftercare set up with therapist Leslie and psychiatrist Dr. Frederick. While in [facility] she had one significant panic attacks which led to ER visit however this was noted to be the result of forgetting to take medications. She has remained sober and has denied SI for the past 4 weeks. Improved functioning. Improved energy. Improved functioning per pt report. Time Stopped:: 12:00
--- NOTE | 2020-12-10 14:23 | BH.MTP_ITS ---
Treatment Plan Review Date of Admission:: 11/12/20 Date of Treatment Plan Review:: 12/10/20 Patient's Response to Treatment:: Pt has been consistent and engaged in IOP. Appears motivated to make changes. Completed DSM5 cross-cutting scales which show an overall 40% reduction in symptoms since admission. Shows a 16% reduction in the depression domain, 33% reduction in anger domain, 55% reduction in anxiety domain, and a 50% reduction in dissociation. The [place] and suicidal thoughts domains stayed the same. Status of Current Problems and Symptoms: Pt continues to verbalize depression, anxiety, and erratic moods which impact her functioning and decision-making. Continues to report fleeting suicidal thoughts and emotional dysregulation. Ruminating on past choices and hopeless about her future. Problem #1 Problem Name:: Erratic Mood Status of Goals:: Obj 1- Per outcomes pt has shown improved mood stability with decrease in depression, anger, and dissociation domains. The [place] domain has remained stable and not decompensated. She has begun to track mood and self- defeating thoughts however has not been consistent. Team Recommendations:: Continue to encourage mood and thought tracking. Continue in IOP to prevent decompensation, stabilize mood, and increase healthy coping. Problem #2 Problem Name:: Anxiety Status of Goals:: Obj1- According to measurement outcomes pt has shown a 55% reduction on the anxiety domain. She is able to list several calming skills to help manage anxiety however struggles to utilize these skills when in crisis. Team Recommendations:: Encourage pt to practive skills when not in crisis. Continue in IOP to gain more insight into anxiety and calming skills.
--- NOTE | 2020-12-11 09:05 | BH.SGPN.GN ---
Behaviors/Verbalizations/Mental Status: [] Eye contact is good. Motor activity is appropriate. Appearance is disheveled. Speech is Appropriate. Mood is anxious/irritable. Affect is congruent. Thoughts are linear and logical. No evidence of psychosis. Reviewed daily check in sheet and no reports of suicidal ideations or intent. Client Response/Progress/Benefit: [] Pt was an active participant in group discussion. Attentive. Provided appropriate feedback. Daily symptom tracker notes 2/5 for anxiety. Emotion is overwhelmed mainly related to tasks and responsibilities for today. She talked at length about the tasks needed today (i.e. driving daughter to gymnastics, etc) and that she has limited help from as he doesn't drive and is working 3rd shift this week. Allowed pt to vent which helps her reframe thoughts. Shared that today is her last day in IOP. She shared her progress over the past 6 weeks noting that she has remained sober, has had only 1 significant panic attack, started a job, and is more hopeful. Insight that it would be beneficial to focus more on anger management going forward. Group provided feedback, support, and praise which was beneficial. Progress noted. Today will be last day in IOP. Narrative Note: []
--- NOTE | 2020-12-11 10:10 | BH.SGPN.GN ---
Behaviors/Verbalizations/Mental Status: [] Eye contact is good. Motor activity is appropriate. Appearance is disheveled. Speech is Appropriate. Mood is euthymic. Affect is full. Thoughts are linear and logical. No evidence of psychosis. Client Response/Progress/Benefit: [] Pt was an active participant in group discussion and activity. Attentive during psychoeducation on anger. Participated in interactive discussion on reasons for anger and some positive benefits which include; standing up for something, sports, competition, causes us to set boundaries, and motivates us into action. Participated in discussion on the emotions that underlay anger or feed anger which pt identified were feeling unappreciated, living in the past, and fear of judgement. Patient also shared how anger manifests which is over-reacting, getting loud, and talking shit. Benefited from increased understanding of anger and how it impacts individuals. Will continue in IOP to maintain gains and prevent decompensation. Narrative Note: []
--- NOTE | 2020-12-11 11:13 | BH.SGPN.GN ---
Behaviors/Verbalizations/Mental Status: []Eye contact is good. Motor activity is appropriate. Appearance is casual. Speech is Appropriate. Mood euthymic, anxious. Affect is congruent. Thoughts are linear and logical. No evidence of psychosis. Client Response/Progress/Benefit: []Pt responded well to session as evidenced by contributing during challenge activity, taking notes, and providing input when prompted throughout. Processed how strategies used for problem solving in activity can be applied to daily life. Pt completed problem solving worksheet and identified the problem she wants to work on as ?continue to improve patience and anger management?. Pt identified skills she can utilize to work on this problem include: continue to reach out to her counselor about these concerns, deep breathing, step away and think before responding, and ask herself ?what?s really bothering me??. Discussed that working to solve this problem will aid in improving mood stability, promote healthy emotion release, and improve communication and conflict resolution in her relationships. Pt seemed to benefit from identifying strategies to problem solve through a problem currently impacting mental health. Pt discharging from [facility] today and is recommended continued outpatient tx to maintain gains, continue to promote healthy coping skill application, and prevent decompensation. Narrative Note: []
--- NOTE | 2020-12-11 12:22 | BH.DS ---
Discharge Summary - Demographics Date of Admission:: 10/27/20 Discharge Date: 12/11/20 Presenting Problems at Admission:: Pt is a 25 year old female with hx of MDD, LAURA, and Opiate Use Disorder (full remission). No previous psychiatric admissions. Referred to IOP by her outpatient therapist due to worsening depression and anxiety. Mental health symptoms which have been exacerbated by psychosocial stressors have resulted in self-medication with alcohol in the past two months. Discussed alcohol use with outpatient CD therapist who recommended mental health IOP. Endorses poor sleep, increased appetite, low energy, no motivation, hopelessness, worthlessness, anhedonia, and little pleasure in activities. Denies active suicidal ideations, plan or intent. Previous suicide attempt in 2016. Currently reports survival ambivalence stating I don't' want to however I would lie to be in a coma. Ruminations. Panic attacks occurring 2-3 times weekly. Drinking 8-10 beers every 2 days. Last use was 10/15/20. Hx of Opiate use with two admission to rehab in 2019. No use in 2 years. Denies HI or psychosis. No family hx of mental illness. Currently lives with grandmother, RIC, and her 2 daughters. Medication compliant. Linked with psychiatry and counseling. Discharge Diagnoses:: 1. Major depressive disorder, recurrent, severe without psychosis (resolving). 2. Generalized anxiety disorder Reason for Discharge:: Pt has met all treatment plan goals. No longer meets criteria for IOP level of care. - Treatment Progress During Treatment & Response: Pt made significant progress in IOP level of care. Outcome measures show a 64% decrease in overall symptoms. Since admission pt has shown a 50% reduction in the depression domain, 50% reduction in anger domain, and a 58% reduction in anxiety domain. She reports sobriety since entering the program and only one significant panic attack which occurred last week. Medication changes which also improved mood. Was consistent and engaged in treatment. Issues Still to be Addressed:: Anger mgmt, low frustration tolerance, poor communication with support, anxiety, and panic Discharge Recommendations/Instructions:: Has appt with outpatient therapist today. Appt with Dr. Frederick for medication management in 2 months. Pt may start aftercare group here at [facility] next week. Discharge Handout: Complete Discharge Handout with client on aftercare options and continuity of care.
== END 2020-12-11 13:05 | disposition home or self-care (01) ==
LOC: BHIOP 09:00
PROVIDERS: Visit Provider Psychiatry & Neurology Psychiatry
DX: F33.2 Major depressive disorder, recurrent severe without psychotic features (principal); F41.1 Generalized anxiety disorder; Z72.89 Other problems related to lifestyle
CPT/HCPCS: 99214; H2012; H2020; S9480; 90832; 90834

== ENCOUNTER 2021-01-07 15:02 | Emergency (ER) | payer MEDICAID, SELFPAY ==
[2021-01-07 15:03] VITALS: BP 148/100; PULSE 113; RESP 18; TEMP 36.1; O2SAT 96; BMI 28.3
--- NOTE | 2021-01-07 15:11 | EX.ED.UPPERE ---
HPI History of Present Illness Chief Complaint: Laceration Detail of Chief Complaint: Laceration left little finger Informant: patient Occured/Mechanism Mechanism/Context: Yes injury Onset/Context/Timing Onset: Hours Context: Sudden Onset Timing: Continuous Quality of Pain: - (No) Location: Ulnar side right left little finger distal PIP joint pain Current Severity: Gone Maximum Severity: Mild Worsened by: Injury Relieved by: Nothing Associated Symptoms Associated Symptoms: Positive for Parasthesia; Negative for Weakness and Loss of Funtion Narrative Narrative: Patient is a 25-year-old [id number] female presents with laceration to the ulnar side of her left little finger. Tetanus is unknown. She reports numbness. She denies loss of function. Remove she has no other complaints. Past medical history remarkable for hepatitis C. She has no allergies. Tetanus Immunization: Unknown Prior similar symptoms: No Recent Illness/Hospitalization: No [facility] Medical History Alcohol use disorder Cannabis use disorder, mild, abuse Generalized anxiety disorder Hepatitis C Major depressive disorder, recurrent severe without psychotic features Opiate use Home Medications famotidine 20 mg PO BID 11/20/18 [History Last Taken 12/06/19] alprazolam 1 mg PO DAILY PRN PRN 10/29/20 [History Last Taken Unknown] bupropion HCl [Wellbutrin XL] 150 mg PO DAILY 30 Days #30 tab 10/29/20 [Rx Last Taken Unknown] cholecalciferol (vitamin D3) [Vitamin D3] 1,000 unit PO DAILY 10/29/20 [History Last Taken Unknown] venlafaxine [Effexor XR] 187.5 mg PO DAILY 10/29/20 [History Last Taken Unknown] Allergy/AdvReac Type Severity Reaction Status Date / Time No Known Allergies Allergy Verified 01/07/21 15:05 Social History (Updated 01/07/21 @ 15:[address] Enrique Zepeda MD) Smoking Status: Former smoker alcohol intake: never substance use type: marijuana ROS ROS ED Gastrointestinal Gastrointestinal: Denies nausea or vomiting Integumentary Denies abscess, Abrasions or rash Neurologic Neurologic: Reports paresthesias; Denies weakness Hematologic/Lymphatic Hematologic/Lymphatic: Denies easy bleeding or easy bruising EXAM Physical Exam Const Vital Signs: 01/07/21 15:03 Temperature 97 F L Temperature Source Temporal Pulse Rate 113 H Respiratory Rate 18 Blood Pressure 148/100 H Blood Pressure Mean 116 Pulse Ox 96 Oxygen Delivery Method Room Air Positive well nourished and well developed General Appearance ED: well developed and NAD HEENT normocephalic and atraumatic Eyes PERRL and EOMs intact bilaterally Resp normal respiratory effort Cardio regular rate and regular rhythm Extremity full ROM; Negative for normal to inspection Extremity Narrative: Patient has a flap laceration ulnar side left little finger distal PIP joint. The extensor minimized tendon is functionally intact. The flexor digitorum superficialis and flexor digitorum profundus are intact. Patient has normal capillary refill and normal two-point discrimination. There are no other injuries noted. General Extremety ED: Negative for edema General Extremity: Negative for edema Neuro oriented x3, CN's II-XII intact bilaterally, no focal motor deficits and no sensory deficits noted Sensorium / Orientation: alert Psych mental status grossly normal Skin Lesions: no lesions Rashes: no rashes Trauma: laceration flap, motor nerve function intact and sensation intact; Negative for no lacerations or abrasions MDM MDM MDM Narrative Medical decision making narrative: Tetanus was updated. Wound was repaired. Procedures Other Procedures Procedure(s): The flap measures 2.0 x 0.5 x 1.5 cm in length. The digit was now sized by metacarpal nerve block. A total of 2.5 cc of 1% lidocaine was infiltrated. The wound was irrigated with 125 cc of normal saline. There was a foreign body that was removed. The laceration was closed using 5-0 Ethilon. A total of 8 simple interrupted sutures were placed. Discharge Plan Triage Chief Complaint: Laceration ED Provider: Enrique Zepeda Dx/Rx/DC Orders Clinical Impression: Laceration of left little finger w/o foreign body w/o damage to nail Instructions: ED Laceration, Hand: All Closures Prescriptions: No Action famotidine 20 MG tablet 20 mg PO BID RF: 0 bupropion HCl [Wellbutrin XL] 150 mg tablet extended release 24 hr 150 mg PO DAILY 30 Days Qty: 30 RF: 0 venlafaxine [Effexor XR] 75 mg Capsule,Extended Release 24hr 187.5 mg PO DAILY RF: 0 alprazolam 1 mg tablet 1 mg PO DAILY PRN PRN (Reason: Anxiety) RF: 0 cholecalciferol (vitamin D3) [Vitamin D3] 25 mcg (1,000 unit) Capsule 1,000 unit PO DAILY RF: 0 Primary Care Provider: Wang Nguyen Referrals: Sophia Nguyen [Licensed Practical Nurse] - 10 Day for suture removal Activity Restrictions/Additional Instructions: 1. Keep wound clean and dry 2. Clean wound with peroxide and Q-tip 3 times a day 3. Apply bacitracin ointment after cleaning wound with peroxide Disposition Disposition: Home, Self Care
[2021-01-07] MEDS: Diphth,Pertuss(Acell),Tet Vac 0.5 ML Vial IM (16:13)
[2021-01-07] MEDS: Lidocaine 1% (20 ml mdv) 20 ML Vial INFILT (16:14)
== END 2021-01-07 16:26 | disposition home or self-care (01) ==
LOC: ED 15:41
PROVIDERS: Emergency Provider Emergency Medicine; PCP Student in an Organized Health Care Education/Training Program
DX: S61.217A Laceration without foreign body of left little finger without damage to nail, initial encounter (principal); X58.XXXA Exposure to other specified factors, initial encounter; Y92.9 Unspecified place or not applicable; Y99.9 Unspecified external cause status; B19.20 Unspecified viral hepatitis C without hepatic coma; F33.2 Major depressive disorder, recurrent severe without psychotic features; F41.1 Generalized anxiety disorder; Z87.891 Personal history of nicotine dependence; Z23 Encounter for immunization
CPT/HCPCS: 12002; 90471; 90715; 99284

== ENCOUNTER 2024-10-24 12:01 | Day surgery (SDC) | payer MEDICAID, SELFPAY ==
[2024-10-24] VITALS (10 sets, daily range): BP systolic 116–150; BP diastolic 70–114; PULSE 70–130; RESP 16–18; TEMP 36.1–36.8; O2SAT 98–100; BMI 24.2
[2024-10-24 12:29] LABS: Internal QC Validated? YES +Cl - CLEAR BKGD; Record Kit Lot#,Urine Preg 0000962302
[2024-10-24 12:30] LABS: Pregnancy, Urine Negative Negative
[2024-10-24] MEDS: Lactated Ringers 1,000 ML 15 ML IV (12:46)
[2024-10-24 13:17] LABS: AST(SGOT) 40 U/L (<=31); Alanine Aminotransfer ALT/SGPT 57 U/L (<=34); Albumin, Serum 4.1 g/dL (3.5-5.0); Alkaline Phosphatase 64 U/L (35-104); Bilirubin, Direct 0.26 mg/dL (0.00-0.30); Globulin 3.2 g/dL (2.2-4.2)
--- NOTE | 2024-10-24 13:18 | PCM.PRE.AN2 ---
ASA Classification* ASA Classification ASA Classification: 3 Assessment & Plan Anesthesia* Anesthesia Assessment Anesthesia Assessment: Discussed sedation and/or anesthesia options, risks, benefits, and alternatives with patient/parents/legal guardian/POA. Questions invited. The patient/parents/legal guardian/POA seems to understand and agrees to proceed with anesthesia plan. Reviewed the physical assessment, medical history, allergy history and patient home medications list prior to surgery/procedure/anesthetic and documented any changes. Performed airway and anesthesia risk assessments. Anesthesia Type Anesthesia Type: General and Block History Source History Obtained from:: Patient and Chart Anesthesia Focused Assessment* Temperature: 98.2 F Pulse Rate: 130 Blood Pressure: 150/81 Respiratory Rate: 16 Pulse Ox: 99 Oxygen Delivery Method: Room Air Airway Assessment Mouth opens: >3 cm Mallampati Score: I Teeth Condition: Chipped/Broken Neck Range of motion (ROM): Full ROM Labs Anesthesia Preop lab: CBC WBC 23.8 K/mm3 (4.4-11.0) H 12/08/19 04:00 12/08/19 RBC 3.59 M/mm3 (4.2-5.4) L 12/08/19 04:00 12/08/19 Hgb 10.7 g/dL (12.0-15.0) L 12/08/19 04:00 12/08/19 Hct 33.3 % (37-47) L 12/08/19 04:00 12/08/19 Plt Count 272 K/mm3 (150-450) 12/08/19 04:00 12/08/19 CHEMISTRY Potassium 3.5 mmol/L (3.5-5.1) 11/20/18 18:18 11/20/18 Sodium 142 mmol/L (136-145) 11/20/18 18:18 11/20/18 Magnesium 1.9 mg/dL (1.8-2.4) 01/01/16 23:45 01/01/16 BUN 16 mg/dL (7-18) 11/20/18 18:18 11/20/18 Creatinine 0.75 mg/dL (0.55-1.02) 11/20/18 18:18 11/20/18 Glucose 105 mg/dL (74-106) 11/20/18 18:18 11/20/18 POC Glucose 145 mg/dL (70-110) H 08/23/15 17:41 08/23/15 COAG PT 13.7 SECONDS (11.7-14.9) 01/01/16 20:10 01/01/16 HCG, Quant 16 mIU/mL (<9 non-preg) H 01/01/16 20:10 01/01/16 Urine Test Negative Negative 10/24/24 12:20 10/24/24 Pre-Assessment Diagnosis/Proposed Procedure Planned Operative Procedure(s): LEFT ANKLE ORIF Anesthesia History Anesthesia History - corporate administrator: Anesthesia History - corporate administrator Hx Hospitalization No 10/18/24 11:18 Any Problems With Anesthesia No 10/18/24 11:18 Cholinesterase deficiency No 10/18/24 11:18 You/Your Family Experience No 10/18/24 11:18 fever (hyperthermia) with Relationship Recent Exposure to Contagious No 10/24/24 12:42 Disease Does patient have nerve No 10/18/24 11:18 stimulator Patient instructed to have device shut off --Does patient have Pacemaker No 10/24/24 12:42 or ICD? When Was Last Pacemaker Check QUESTION #4 FULL TEXT: You/Your Family Experience fever (hyperthermia) with Anesthesia Last Oral Intake Last Oral intake: Last Oral Intake NPO since Meds taken in AM with sips of Yes 10/24/24 12:42 water? Meds patient instructed to TRILEPTAL,LORAZEPAM 10/24/24 12:42 take am of surgery PONV PONV - corporate administrator: PONV - corporate administrator Female Yes 10/18/24 11:18 HX of Motion Sickness No 10/18/24 11:18 HX of N/V After Surgery No 10/18/24 11:18 Non-Smoker No 10/18/24 11:18 Duration of Surgery greater Yes 10/18/24 11:18 than 60 minutes Number of Risk Factors 2 10/18/24 11:18 PONV Score Moderate Risk 10/18/24 11:18 Height & Weight Height & Weight: Anesthesia: Height & Weight Height 5 ft 5 in 10/24/24 12:42 Weight: 66 kg 10/24/24 12:42 Body Mass Index (BMI) 24.2 10/24/24 12:42 Respiratory Assessment Respiratory Assessment - corporate administrator: Respiratory Tract Infection Hx - corporate administrator Hx Respiratory Tract Infection No 10/18/24 11:18 STOP Sleep Apnea STOP Sleep Apnea - corporate administrator: STOP Sleep Apnea - corporate administrator Hx Hypertension No 10/18/24 11:18 Hx Sleep Apnea No 10/18/24 11:18 CPAP BIPAP Do you snore loudly (louder No 10/18/24 11:18 than talking or can be heard Do you often feel tired/ No 10/18/24 11:18 fatigued/ sleepy during daytime? Has anyone observed you stop No 10/18/24 11:18 breathing during sleep? STOP Results Negative 10/18/24 11:18 QUESTION #5 FULL TEXT : Do you snore loudly (louder than talking or can be heard through closed doors)? Tobacco Use History Tobacco Use History - corporate administrator: Tobacco Use History - corporate administrator Tobacco Use Smoking Status Current every day smoker 10/18/24 11:18 Hx Tobacco Use Yes 10/18/24 11:18 Years Smoking Packs Smoked per Day Smoking Cessation Date was within the last 15 years Hx Smoking Cessation Date 02/29/00 10/15/24 10:17 Hx Smoking Cessation No 10/18/24 11:18 Counseling Hematologic Medial History Hematologic Hx - corporate administrator: Hematologic Medical Hx - acid retort operator Hx of Blood Transfusion No 10/18/24 11:18 Hx of Transfusion in last 3 No 10/18/24 11:18 Months Date of Last Transfusion (if within last 3 months) Ever experience any problems No 10/18/24 11:18 with transfusion(s)? Specify any problems Hx of Preganancy in last 3 No 10/18/24 11:18 Months Nurse Filling Out Transfusion DSCHRIBER 10/18/24 11:18 & Questions: Date: 10/18/24 10/18/24 11:18 Time: 11:19 10/18/24 11:18 Patient unable to answer at this time (ie. confused, unrespo /Reproduction History /Reproductive History - corporate administrator: /Reproductive Hx- corporate administrator Hx Now No 10/18/24 11:18 Gestational Age (in weeks): EDC: Hx Hx Para Hx Section SAB No 10/18/24 11:18 Active Medications Active Medications: Current Medications Generic Name Dose Route Start Last Admin Trade Name Freq PRN Reason Stop Dose Admin Cefazolin Sodium 2 gm/ Sodium 110 mls @ 200 mls/hr 10/24/24 14:20 Chloride IV 10/24/24 14:52 INTRAOP ONE Lactated Ringer's 1,000 mls @ 15 mls/hr 10/24/24 12:30 10/24/24 12:46 IV 15 mls/hr .Q48H ZAIRA Administration PFSH Medical History (Updated 10/18/24 @ 11:30 by Leida Pandya) Wears glasses PTSD (post-traumatic stress disorder) Bipolar affective disorder Mood disorder Alcohol use Crutches as ambulation aid Migraine headache Seizures Heartburn Smoker History of edema History of stress test Closed left ankle fracture Opiate use Cannabis use disorder, mild, abuse Generalized anxiety disorder Major depressive disorder, recurrent severe without psychotic features Hepatitis C Home Medications ?Medication ?Instructions ?Recorded ?Last Taken ?Type lorazepam 0.5 mg tablet 0.5 mg PO TID PRN anxiety 10/16/24 10/24/24 History amitriptyline 25 mg tablet 25 mg PO QHS 10/18/24 10/23/24 History oxcarbazepine 150 mg tablet 150 mg PO BID 10/18/24 10/24/24 History Allergy/AdvReac Type Severity Reaction Status Date / Time No Known Allergies Allergy Verified 10/24/24 12:40 Surgical History (Updated 10/18/24 @ 11:30 by Leida Pandya) History of anal fistulotomy Social History Smoking Status: Former smoker alcohol intake: never substance use type: marijuana Review of Systems (Anesthesia) ROS Narrative System reviewed and no additional complaints, except as documented.
[2024-10-24 14:02] LABS: Barbiturate Urine NEGATIVE (< 200 ng/mL); Benzodiazepine Urine PRESUMPTIVE POSITIVE (< 200 ng/mL); PCP Urine NEGATIVE (< 25 ng/mL); THC Urine PRESUMPTIVE POSITIVE (< 50 ng/mL)
--- NOTE | 2024-10-24 14:44 | PCM.HP.STD ---
HPI - General HPI Narrative FREYA OLGUIN, is a 29 F who presents for left ankle open reduction internal fixation. no changes to h and p. ok to proceed. narcotic counselling, rab, and post op instructions give. left ankle marked. plan for block. no further questions or concerns. MR#: [id number] Acct: [id number] Name: FREYA OLGUIN Rep #: [id number] : 1995 Provider: Dr. Rodolfo Orellana MD Age/Sex: 29/F Location: [facility] [place] Status: Signed Intake Vital Signs 01/07/2115:03 10/15/2509:17 10/16/2512:57 Height 5 ft 5 in 5 ft 5 in 5 ft 5 in Weight: 145 lb BMI 24.1 Intake Visit Reasons: LEFT ANKLE Chief Complaint: Left ankle Accompanied by: Self Is patient in pain?: Yes Pain scale (1-10): 6 Allergies No Known Allergies Allergy (Verified 10/16/24 14:00) Medications ?Medication ?Instructions ?Recorded ?Confirmed ?Type lorazepam 0.5 mg tablet 0.5 mg PO TID PRN anxiety 10/16/24 10/16/24 History Have you fallen in the past year?: Yes [facility] Medical History Closed left ankle fracture Opiate use Cannabis use disorder, mild, abuse Alcohol use disorder Generalized anxiety disorder Major depressive disorder, recurrent severe without psychotic features Hepatitis C Social History Smoking Status: Former smoker alcohol intake: never substance use type: marijuana HPI LEFT ANKLE Details: This documentation accurately reflects the service provided and the decisions made by me, Dr. Rodolfo Orellana MD 10/16/24 8098. Part of today?s visit was documented by [ ], acting as scribe. FREYA OLGUIN is a 29 year old F here today for L ankle fracture. Tripped over a rug in the house about 3 days ago. X-ray showed a displaced distal fibula fracture. Was placed into a splint. The patient has severe social anxiety barely leaves the house for the last 4 years. Does not work. Her boyfriend makes money selling marbles online. Patient has untreated hepatitis C. Does not see doctors due to severe social anxiety. Supplemental Info L ankle 3 view from 10/13/24 distal fib fracture, dailey B with lateral talar shift, increase medial gutter to 5.5mm Coding Level of Care Code Off vis,new,level 4 Diagnoses Closed left ankle fracture S82.892A Assessment and Plan Assessment and Plan (1) Closed left ankle fracture: Status: Acute Plan: FREYA OLGUIN is a 29 year old F here today for L ankle fracture. Isolated distal fib fracture, dailey B with lateral talar shift, increase medial gutter to 5.5mm. This is an unstable fracture with lateral talar shift increase in the contact pressures of the ankle. Generally with this type of x-ray and instability with shift of the talus recommend for surgical open reduction internal fixation to restore the normal anatomy and restore the contact pressures to lessen the risk of long-term osteoarthritis and damage to the cartilage. Non operative would generally not be recommended in this case. Explained the pros and cons risks and benefits of each of these methods of treatment to the patient. Patient wishes to proceed with left ankle open reduction internal fixation. Try for within 5-7 business days. Patient has an increased risk of infection nonunion due to her half pack a day smoking habit and I counseled the patient to quit or cut back as well as that untreated hepatitis C and other medical problems will increase the risks of complications. Pros and cons risks and benefits were discussed with the patient including but not limited to infection, pain, stiffness, bleeding, damage to surrounding structures, neurovascular injury, recurrence or retear, failure or wear of hardware or fixation, instability, fracture, deep vein thrombosis and pulmonary embolism, anesthetic risks, , patient dissatisfaction, need for further surgery and other risks. Patient understood and wished to proceed with surgery, and signed the informed consent documentation. Medications: Discontinued bupropion HCl XL (Wellbutrin XL) Discontinued Reason: Pt no longer taking 150 mg PO DAILY 30 days 30 tabs 0RF Clinical Quality Measures Falls Risk Screening/Assistive Devices Have you fallen in the past year?: Yes Ortho Exam General General: Yes no acute distress Neurologic: Yes alert and Yes oriented x3 Psychologic: Yes reasonable and appropriate Left Foot/Ankle Skin: Yes CDI, Ecchymosis and Soft Tissue Swelling; No Erythema Exam: Yes Ecchymosis, Soft tissue swelling, tender to palpate - over fracture site, TTP Lateral Malleolus, TTP Medial Malleolus, eversion normal and inversion normal; No Erythema Compartments: soft Dorsiflexion 0-20: 0 degrees Plantar Flexion 0-40: 40 degrees Motor: Ankle Dorsiflextion: 4, Ankle Plantar Flexion: 4, Ankle Eversion: 4, Ankle Inversion: 4 and EHL: 4 Sensation: Deep Peroneal Nerve: I, Superficial Peroneal Nerve: I, Tibial Nerve: I, Sural Nerve: I and Saphenous Nerve: I Pulses: Dorsalis Pedis: 2 and Posterior Tibial: 2 [facility] Medical History (Updated 10/18/24 @ 11:30 by Leida Pandya) Wears glasses PTSD (post-traumatic stress disorder) Bipolar affective disorder Mood disorder Alcohol use Crutches as ambulation aid Migraine headache Seizures Heartburn Smoker History of edema History of stress test Closed left ankle fracture Opiate use Cannabis use disorder, mild, abuse Generalized anxiety disorder Major depressive disorder, recurrent severe without psychotic features Hepatitis C Home Medications ?Medication ?Instructions ?Recorded ?Last Taken ?Type lorazepam 0.5 mg tablet 0.5 mg PO TID PRN anxiety 10/16/24 10/24/24 History amitriptyline 25 mg tablet 25 mg PO QHS 10/18/24 10/23/24 History oxcarbazepine 150 mg tablet 150 mg PO BID 10/18/24 10/24/24 History Allergy/AdvReac Type Severity Reaction Status Date / Time No Known Allergies Allergy Verified 10/24/24 12:40 Surgical History (Updated 10/18/24 @ 11:30 by Leida Pandya) History of anal fistulotomy Social History Smoking Status: Former smoker alcohol intake: never substance use type: marijuana Vital Signs Vital Signs Vital Signs: 10/24/24 12:42 10/24/24 12:42 10/24/24 13:19 Temperature 98.2 F 98.2 F Temperature Source Temporal Pulse Rate 130 H 130 H Respiratory Rate 16 16 Respiratory Pattern Normal Blood Pressure 150/81 H 150/81 H Blood Pressure Mean 104 Blood Pressure Source Monitor Blood Pressure Position Semi-Fowlers Blood Pressure Location Left Arm Pulse Ox 99 99 Oxygen Delivery Method Room Air Room Air 10/24/24 13:25 Temperature Temperature Source Pulse Rate 102 H Respiratory Rate Respiratory Pattern Blood Pressure 124/81 H Blood Pressure Mean 95 Blood Pressure Source Monitor Blood Pressure Position Semi-Fowlers Blood Pressure Location Left Arm Pulse Ox 100 Oxygen Delivery Method Room Air Weight Weight: 145 lb 8.081 oz Body Mass Index (BMI) 24.2 Results Lab / Micro Data Labs: Laboratory Results - last 24 hr 10/24/24 12:20: Urine Test Negative, Urine Opiates Screen NEGATIVE, U Buprenorphine Qual NEGATIVE, Ur Oxycodone Screen NEGATIVE, Urine Methadone Screen NEGATIVE, Urine Fentanyl Screen NEGATIVE, Ur Barbiturates Screen NEGATIVE, Ur Phencyclidine Scrn NEGATIVE, Ur Amphetamines Screen PRESUMPTIVE POSITIVE, U Benzodiazepines Scrn PRESUMPTIVE POSITIVE, Urine Cocaine Screen NEGATIVE, U Cannabinoids Screen PRESUMPTIVE POSITIVE 10/24/24 12:37: Total Bilirubin 0.59, Direct Bilirubin 0.26, AST 40 H, ALT 57 H, Alkaline Phosphatase 64, Total Protein 7.3, Albumin 4.1, Globulin 3.2
[2024-10-24] MEDS: Lidocaine 1% (5 ml sdv) 5 ML Vial 10 ML IV (15:15)
[2024-10-24] MEDS: Midazolam 2 MG/2 ML Syringe IV (15:15)
[2024-10-24] MEDS: Lactated Ringers 1,000 ML 1000 ML IV (15:15)
[2024-10-24] MEDS: Cefazolin 1 GM/5 ML Vial 2 GM IV (15:17)
--- NOTE | 2024-10-24 15:20 | RAD_ITS ---
PROCEDURE: ANKLE 2 VIEWS 10/24/2024 REASON FOR EXAM: LT ANKLE ORIF TECHNIQUE: ANKLE 2 VIEWS Laterality: FINDINGS: Intraoperative fluoroscopy was performed for a left ankle ORIF. 57.9 seconds of fluoroscopic time. 1.42 mGy. See procedure report for full details. RAD/Ankle 2 Views IMPRESSION: As above. Reading Location: [id number]
--- NOTE | 2024-10-24 16:33 | DCINST_ITS ---
Discharge Instructions Diet Discharge Diet: No restrictions Activity Discharge Activity: May Not Drive and Use Crutches Ice area for (Minutes): 10 Weight Bearing Status: No weight bearing Keep extremity elevated above heart level: Operative Extremity Additional Activity Instructions:: crutches, non weight bearing Dressing / Incision Call your doctor if your incision/area has: Continuous Slow Oozing, Sudden Increased Bleeding, Increased Pain/ Swelling, Increased Redness, Foul Smelling Discharge and Swelling at the incision site Call your doctor if you observe: Fever of 101 or Higher, Coldness, Increased Pain and Numbness or Tingling Change Dressing in: leave in place till F/U Cleanse incision/area with: Do not get Incision Wet Follow Up Care Please Follow Up With: Rodolfo Orellana MD When: within 2 weeks Test Results: Test results from this visit will be discussed in further detail at your follow- up appointment, if applicable. Discharge Plan Admission Attending Provider: Rodolfo Orellana Primary Care Provider: Wang Nguyen Instructions Patient Instructions: Ankle Fracture ORIF Print Language: Lithuanian Discharge Orders/Prescriptions Prescriptions: New oxycodone-acetaminophen [Percocet] 5-325 mg tablet 1 tab PO Q4H MDD 6 PRN (Reason: pain) 3 Days Qty: 20 0RF No Action lorazepam 0.5 mg tablet 0.5 mg PO TID PRN (Reason: anxiety) oxcarbazepine 150 mg tablet 150 mg PO BID amitriptyline 25 mg tablet 25 mg PO QHS Referrals / Follow Up: Wang Nguyen DO [Primary Care Provider] - Rodolfo Orellana MD [Med Staff - Active Staff] - Disposition Disposition (needs filled in before D/C Order can be placed): Home, Self Care
--- NOTE | 2024-10-24 16:36 | OP.PCM_ITS ---
Problems Associated Problem List Diagnoses (1) Closed left ankle fracture: Procedures Musculoskeletal 20xxx-29xxx: Other Procedure See Report Operative Report (Standard) Operative Information Date of Procedure: 10/24/24 Pre-Operative Diagnosis: L ankle fracture Post-Operative Diagnosis: same, plus disruption syndesmosis Surgery/Procedure Performed: L distal fibula ORIF, fixation syndesmosis mold maker plaster: Yes Patient Monitor: chago Tasks completed by rn first assistant: Retracting Additional pediatric assistant?: No Type of Anesthesia: Block,Regional and General RN Documented Start/Stop Times: Operation Date: 10/24/24 14:00 Case Time Into Pre-Op 10/24/24 12:21 Out of Pre-Op 10/24/24 14:41 Anesthesia Start 10/24/24 15:09 Into Room 10/24/24 15:09 Procedure Start 10/24/24 15:34 Procedure End 10/24/24 16:30 Anesthesia End 10/24/24 16:34 Out of Room 10/24/24 16:34 Procedure Start Time: 15:34 Procedure Stop Time: 16:34 Select all DRAINS/GRAFTS/IMPLANTS that apply: Implanted device Implanted device details: see below Estimated Blood Loss: 20 Specimen collected: No Description of surgery: Patient brought to the operating room theater. Placed supine on the table. General anesthesia induced. 2 g IV Ancef administered prior to the start of the procedure. Tourniquet applied to left thigh appropriately padded. Bump on the left thigh blankets on the left ankle to elevate the lower extremity. Lower extremity prepped and draped in the usual sterile fashion with chlorhexidine- based prep solution allowing over 3 drying time prior to draping. Preoperative timeout performed to confirm the site patient and the surgery. Began by elevating the limb inflating the tourniquet to 250 mmHg. Made a standard distal incision at the subcutaneous border of the distal fibula. Carried the dissection down through skin and subcutaneous tissue achieved meticulous hemostasis. Protected the superficial peroneal nerve as well as the peroneal tendons. Dissected down onto the bony surface. Identified the fracture site this is a short oblique fracture. Removed any interposed hematoma and fracture periosteum. Irrigated the joint, no loose bodies or chondral defects. Achieved anatomic reduction using direct manipulation and fracture pointed forceps. Took intraoperative AP oblique and lateral radiographs to ensure appropriate reduction of the fracture as well as anatomic reduction of the mortise, and medial gutter. I used a lag by technique. I drilled distal across the fracture site in an oblique fashion. I placed a 28 mm long 2.7 mm lag screw this held the fracture nicely, overdrilled proximally as well as counter-sinking. I then selected a Arthrex precontoured locking distal fibula plate placed it laterally and secured this onto the bone using 4 fully threaded proximal cortical nonlocking screws. I placed 4 locking screws distally as well ensured to keep these out of the joint. The syndesmosis was obviously unstable as well as being associated with a small posterior malleolus fracture. I used direct manipulation and visualization directly of the syndesmosis to reduce the syndesmosis joint with the ankle in neutral. I passed the guidepin across at the level of the syndesmosis collinear with the ankle joint. Then overdrilled for this and then used the pallet stone inserter to insert the Arthrex tight rope button across the medial aspect of the medial malleolus in the mid aspect. I flipped the button pulled on the opposing sutures to deliver the button to the cortical surface and then pulled on the free ends of the suture to then deliver the tight rope to the lateral aspect of the distal fibular plate. I sequentially tightened these to ensure good reduction of the syndesmosis both on radiographs as well as direct visualization. I cut the suture short after tying over top of the button. Final xrays taken and saved, ER stress test stable and reduction anatomic. Tourniquet let down meticulous hemostasis achieved wound thoroughly irrigated. Subcutaneous tissue closed with 2-0 Vicryl suture skin with 3-0 Monocryl. Skin cleaned with wet dry dressing followed by patient with Steri-Strips Adaptic 4 x 4 gauze sterile cast padding and a posterior fiberglass prefabricated splint overwrapped loosely with Jeremy bandage with the foot and ankle in neutral this was allowed to fully harden. Patient woken up from general anesthetic transferred off the operating table taken to postanesthetic care unit in stable condition. All sponge needle instrument counts were correct no complications plan for the patient discharged home according to day surgery criteria. I have decided not to anticoagulate the patient as I believe a relatively low risk factor for postoperative VTE given the lower extremity fracture surgery. Plan to follow-up in the office within 2 weeks time and a nonweightbearing on crutches. CPT 96551, 14207 Surgical Findings: as above Complications Complications: No Admit VTE Documentation VTE Present on Admission: No VTE Mechan Device Prophylaxis: SCD's VTE Pharm Prophylaxis ordered?: No Reason prophylaxis not ordered: Treatment Not Indicated
--- NOTE | 2024-10-24 16:43 | PCM.POST.ANE ---
Anesthesia: Postop Eval I Current Vital Signs Temperature: 97 F Pulse Rate: 102 Blood Pressure: 116/70 Respiratory Rate: 18 Pulse Ox: 100 Oxygen Delivery Method: Room Air Assessment Airway patent: Yes Spontaneous unlabored respirations: Yes Mental status: Apprehensive nausea: No Vomiting: No Anesthesia Complication: No Fluid Hydration Crystalloid volume administer (ml): 1,000 Total IV fluid infused: 1,000 Progress Note Anesthesia document: Postop Eval 1 completed: Yes
--- NOTE | 2024-10-24 18:10 | POSTOPAN2_ITS ---
Anesthesia Postop Eval I Sum Postop Eval Completion status Anesthesia document: Postop Eval 1 completed: Yes Anesthesia Postop Eval I Summary Anesthesia Postop Eval I Summary: Anesthesia Postop Eval I: Assessment Summary Airway patent Yes 10/24/24 16:45 COOKER PROCESS CHEESE.ACAR Spontaneous unlabored Yes 10/24/24 16:45 COOKER PROCESS CHEESE.ACAR respirations Mental status Apprehensive 10/24/24 16:45 COOKER PROCESS CHEESE.ACAR nausea No 10/24/24 16:45 COOKER PROCESS CHEESE.ACAR Vomiting No 10/24/24 16:45 COOKER PROCESS CHEESE.ACAR Anesthesia Postop Eval I: Fluid Summary Crystalloid volume administer 1,000 10/24/24 16:45 COOKER PROCESS CHEESE.ACAR (ml) Colloids volume administered ( ml) Blood Product volume administered (ml) Total IV fluid infused 1,000 10/24/24 16:45 COOKER PROCESS CHEESE.ACAR Anesthesia Postop Eval I: Summary Notes Anesthesia Complication No 10/24/24 16:45 COOKER PROCESS CHEESE.ACAR Anesthesia Complication Comment: Post-operative progress note Anesthesia: Postop Eval II Evaluation Mental status: Awake Pain Level: 0 nausea: No Vomiting: No Complications Anesthesia Complication: No
--- NOTE | 2024-10-24 18:10 | PCM.POSTANE2 ---
Anesthesia Postop Eval I Sum Postop Eval Completion status Anesthesia document: Postop Eval 1 completed: Yes Anesthesia Postop Eval I Summary Anesthesia Postop Eval I Summary: Anesthesia Postop Eval I: Assessment Summary Airway patent Yes 10/24/24 16:45 JAVASCRIPT FRONT END DEVELOPER.ACAR Spontaneous unlabored Yes 10/24/24 16:45 JAVASCRIPT FRONT END DEVELOPER.ACAR respirations Mental status Apprehensive 10/24/24 16:45 JAVASCRIPT FRONT END DEVELOPER.ACAR nausea No 10/24/24 16:45 JAVASCRIPT FRONT END DEVELOPER.ACAR Vomiting No 10/24/24 16:45 JAVASCRIPT FRONT END DEVELOPER.ACAR Anesthesia Postop Eval I: Fluid Summary Crystalloid volume administer 1,000 10/24/24 16:45 JAVASCRIPT FRONT END DEVELOPER.ACAR (ml) Colloids volume administered ( ml) Blood Product volume administered (ml) Total IV fluid infused 1,000 10/24/24 16:45 JAVASCRIPT FRONT END DEVELOPER.ACAR Anesthesia Postop Eval I: Summary Notes Anesthesia Complication No 10/24/24 16:45 JAVASCRIPT FRONT END DEVELOPER.ACAR Anesthesia Complication Comment: Post-operative progress note Anesthesia: Postop Eval II Evaluation Mental status: Awake Pain Level: 0 nausea: No Vomiting: No Complications Anesthesia Complication: No
== END 2024-10-24 17:42 | disposition home or self-care (01) ==
LOC: SDC 12:02 → AC 12:10
PROVIDERS: Anesthesiology; PCP Student in an Organized Health Care Education/Training Program; Referring Provider Orthopaedic Surgery Sports Medicine; Visit Provider Orthopaedic Surgery Sports Medicine
PROC: (CPT 27792; principal; 2024-10-24 13:40)
DX: S82.892A Other fracture of left lower leg, initial encounter for closed fracture (principal); F31.9 Bipolar disorder, unspecified; S93.432A Sprain of tibiofibular ligament of left ankle, initial encounter; W22.8XXA Striking against or struck by other objects, initial encounter; B19.20 Unspecified viral hepatitis C without hepatic coma; F41.1 Generalized anxiety disorder; F12.10 Cannabis abuse, uncomplicated; Z79.899 Other long term (current) drug therapy; Z87.891 Personal history of nicotine dependence
CPT/HCPCS: 27792; 27829; 01480; 64450; 73600; 76000; 80076; 80307; 81025; C1713; J2405